=== PATIENT | female | born 1960 | race American Indian/Alaskan Native ===

== ENCOUNTER 2016-05-18 11:43 | Emergency (ER) | payer MEDICAID ==
[2016-05-18] MEDS ORDERED: NORCO 5/325 PO ONE (15:10)
--- NOTE | 2016-05-18 16:28 | Emergency Department Report ---
ED Lower Extremity HPI - General Chief Complaint: Extremity Injury, Lower Stated Complaint: LEFT BIG TOE POSS BROKE Source: patient Mode of arrival: Ambulatory Limitations: No Limitations - History of Present Illness Initial Comments: 55-year-old female past medical history diabetes, HIV presents with complaint of pain left big toe. Patient states family member asked that we stepped on until 2 nights ago. Toe was swollen, painful, ecchymosis around base of left great toe. Onset/Timin -: days(s) Injury: Toes: Left Type of Injury: blunt Place: home Severity: moderate Severity scale (0 -10): 5 Improves With: cold therapy Context: direct blow Associated Symptoms: swelling, able to partially bear weight - Related Data Home Medications Medication Instructions Recorded Confirmed Last Taken Abacavir Sulfate/Lamivudine 1 each PO DAILY 01/05/13 01/05/13 01/04/13 21:00 [Epzicom Tablet] Lopinavir/Ritonavir [Kaletra 1 each PO BID 01/05/13 01/05/13 01/04/13 21:00 200-50 mg] Metformin HCl [Metformin HCl ER] 500 mg PO QDAY 01/05/13 01/05/13 01/04/13 21:00 Previous Rx's Medication Instructions Recorded Last Taken Type Acetaminophen/Codeine [Tylenol #3] 1 tab PO Q6H PRN #8 tab 01/05/13 Unknown Rx Penicillin Vk [Veetids TAB] 500 mg PO QID #40 tablet 01/05/13 Unknown Rx Azithromycin [Zithromax Z-JAGRUTI] 250 mg PO QDAY #6 tablet 11/25/15 Unknown Rx Benzonatate [Tessalon Perles] 100 mg PO Q8HR #14 capsule 11/25/15 Unknown Rx HYDROcodone/APAP 7.5-325 [[place] 1 each PO Q8HR PRN #10 tablet 11/25/15 Unknown Rx 7.5-325 mg TAB] Ibuprofen [Motrin] 800 mg PO Q8HR PRN #15 tablet 02/09/16 Unknown Rx Ibuprofen [Motrin] 600 mg PO Q8H PRN #30 tablet 05/18/16 Unknown Rx Allergies Allergy/AdvReac Type Severity Reaction Status Date / Time No Known Allergies Allergy Verified 05/18/16 11:59 ED Review of Systems ROS: Stated complaint: LEFT BIG TOE POSS BROKE Other details as noted in HPI Constitutional: denies: chills, fever Eyes: denies: eye pain, eye discharge, vision change ENT: denies: ear pain, throat pain Respiratory: denies: cough, shortness of breath, wheezing Cardiovascular: denies: chest pain, palpitations Endocrine: no symptoms reported Gastrointestinal: denies: abdominal pain, nausea, diarrhea Genitourinary: denies: urgency, dysuria, discharge Musculoskeletal: denies: back pain, joint swelling, arthralgia Skin: denies: rash, lesions Neurological: denies: headache, weakness, paresthesias Psychiatric: denies: anxiety, depression Hematological/Lymphatic: denies: easy bleeding, easy bruising ED Past Medical Hx - Past Medical History Hx Hypertension: Yes Hx Diabetes: Yes Hx Asthma: Yes Hx HIV: Yes - Surgical History Additional Surgical History: CYST REMOVED LEFT CHEST (CHILD) - Social History Smoking Status: Current Every Day Smoker Substance Use Type: None - Medications Home Medications: Home Medications Medication Instructions Recorded Confirmed Last Taken Type Abacavir Sulfate/Lamivudine 1 each PO DAILY 01/05/13 01/05/13 01/04/13 21:00 History [Epzicom Tablet] Acetaminophen/Codeine [Tylenol #3] 1 tab PO Q6H PRN #8 tab 01/05/13 Unknown Rx Lopinavir/Ritonavir [Kaletra 1 each PO BID 01/05/13 01/05/13 01/04/13 21:00 History 200-50 mg] Metformin HCl [Metformin HCl ER] 500 mg PO QDAY 01/05/13 01/05/13 01/04/13 21: 00 History Penicillin Vk [Veetids TAB] 500 mg PO QID #40 tablet 01/05/13 Unknown Rx Azithromycin [Zithromax Z-JAGRUTI] 250 mg PO QDAY #6 tablet 11/25/15 Unknown Rx Benzonatate [Tessalon Perles] 100 mg PO Q8HR #14 capsule 11/25/15 Unknown Rx HYDROcodone/APAP 7.5-325 [[place] 1 each PO Q8HR PRN #10 tablet 11/25/15 Unknown Rx 7.5-325 mg TAB] Ibuprofen [Motrin] 800 mg PO Q8HR PRN #15 tablet 02/09/16 Unknown Rx Ibuprofen [Motrin] 600 mg PO Q8H PRN #30 tablet 05/18/16 Unknown Rx ED Physical Exam - General Limitations: No Limitations General appearance: alert, in no apparent distress - Head Head exam: Present: atraumatic, normocephalic - Eye Eye exam: Present: normal appearance - ENT ENT exam: Present: mucous membranes moist - Neck Neck exam: Present: normal inspection - Respiratory Respiratory exam: Present: normal lung sounds bilaterally. Absent: respiratory distress - Cardiovascular Cardiovascular Exam: Present: regular rate, normal rhythm. Absent: systolic murmur, diastolic murmur, rubs, gallop - GI/Abdominal GI/Abdominal exam: Present: soft, normal bowel sounds - Extremities Exam Extremities exam: Present: normal inspection - Expanded Lower Extremity Exam Left Hip exam: Present: normal inspection, full ROM Upper Leg exam: Present: normal inspection, full ROM Knee exam: Present: normal inspection, full ROM Lower Leg exam: Present: normal inspection, full ROM Ankle exam: Present: normal inspection, full ROM Foot/Toe exam: Present: tenderness (tenderness distal left great toe.), swelling Neuro vascular tendon exam: Present: no vascular compromise - Back Exam Back exam: Present: normal inspection - Neurological Exam Neurological exam: Present: alert, oriented X3 - Psychiatric Psychiatric exam: Present: normal affect, normal mood - Skin Skin exam: Present: warm, dry, intact, normal color. Absent: rash ED Course Vital Signs 05/18/16 11:55 Temperature 99.3 F Pulse Rate 101 H Respiratory 17 Rate Blood Pressure 137/86 O2 Sat by Pulse 98 Oximetry ED Lower Extremity MDM - Medical Decision Making A/P: Toe fracture 1-Danie tape left great toe and second together 2-patient fully ambulatory upon discharge 3-Motrin 600 when necessary 4-follow-up with podiatry Critical care attestation.: If time is entered above; I have spent that time in minutes in the direct care of this critically ill patient, excluding procedure time. ED Disposition Clinical Impression: Toe fracture, left Qualifiers: Encounter type: initial encounter Toe: great toe Fracture type: closed Phalanx : distal Fracture alignment: nondisplaced Qualified Code(s): S92.425A - Nondisplaced fracture of distal phalanx of left great toe, initial encounter for closed fracture Disposition: DISCHARGED TO HOME OR SELFCARE Is pt being admited?: No Does the pt Need Aspirin: No Condition: Stable Instructions: Toe Fracture (ED) Prescriptions: Ibuprofen [Motrin] 600 mg PO Q8H PRN #30 tablet PRN Reason: Pain Referrals: PRIMARY CARE, [Primary Care Provider] - 3-5 Days [facility] [Provider Group] - 3-5 Days Time of Disposition: 16:35
[2016-05-18 16:55] VITALS: BP 120/88
--- NOTE | 2016-05-19 08:25 | XRay Report ---
Left first toe: There appears to be minimal swelling of the tissues surrounding the toe. There is no foreign body nor ulcer. The bones and joints appear intact. Of incidental note is either periosteal reaction or subperiosteal resorption along the shaft of the third metatarsal. No other findings identified. Impression: Nonspecific mild swelling.
== END 2016-05-18 16:53 | disposition home or self-care (01) ==
LOC: ED 11:43
DX: S92.425A Nondisplaced fracture of distal phalanx of left great toe, initial encounter for closed fracture (principal); I10 Essential (primary) hypertension; E11.9 Type 2 diabetes mellitus without complications; J45.909 Unspecified asthma, uncomplicated; F17.200 Nicotine dependence, unspecified, uncomplicated; Z21 Asymptomatic human immunodeficiency virus [HIV] infection status; W22.8XXA Striking against or struck by other objects, initial encounter; Y93.89 Activity, other specified; Y99.8 Other external cause status; Y92.098 Other place in other non-institutional residence as the place of occurrence of the external cause
CPT/HCPCS: 99283

== ENCOUNTER 2016-07-04 02:09 | Emergency (ER) | payer MEDICAID ==
[2016-07-04] MEDS ORDERED: BENTYL IM ONE ×2 (02:44→02:57)
[2016-07-04] MEDS ORDERED: LIDOCAINE VISCOUS 2% ONE (02:45)
[2016-07-04] MEDS ORDERED: ALUM-MAG HYDROX-SIMETH 200-200-20MG/5ML ONE (02:46)
[2016-07-04] MEDS ORDERED: ALUM-MAG HYDROX-SIMETH 200-200-20MG/5ML PO ONE (02:57)
[2016-07-04] MEDS ORDERED: LIDOCAINE VISCOUS 2% PO ONE (02:58)
[2016-07-04 03:02] LABS: Basophils % (Auto) 0.4 % (0.0-1.8); Eosinophils % (Auto) 2.7 % (0.0-4.3); Hematocrit 42.1 % (30.3-42.9); Hemoglobin 13.8 gm/dl (10.1-14.3); Mean Corpuscular HGB Conc 33 % (30-34); Mean Corpuscular Hemoglobin 29 pg (28-32); Mean Corpuscular Volume 87 fl (79-97); Platelet Count 193 K/mm3 (140-440); Red Blood Count 4.83 M/mm3 (3.65-5.03); Red Cell Distribution Width 14.2 % (13.2-15.2); White Blood Count 8.9 K/mm3 (4.5-11.0)
[2016-07-04 03:20] LABS: Anion Gap 16 mmol/L; BUN/Creatinine Ratio 14.28; Blood Urea Nitrogen 10 mg/dL (7-17); Calcium 10.5 mg/dL (8.4-10.2); Carbon Dioxide 28 mmol/L (22-30); Chloride 100.2 mmol/L (98-107); Glucose 131 mg/dL (65-100); Potassium 3.5 mmol/L (3.6-5.0); Sodium 141 mmol/L (137-145)
[2016-07-04] MEDS ORDERED: TYLENOL ONE (03:21)
[2016-07-04 03:42] LABS: Bacteria,Urine 1+ /HPF (Negative); Bilirubin,Urine NEG (Negative); Blood,Urine SM (Negative); Ketones,Urine NEG (Negative); Leukocyte Esterase,Urine SM (Negative); Mucus,Urine FEW /HPF; Nitrite,Urine NEG (Negative); Protein,Urine <15 mg/dL mg/dL (Negative); Urobilinogen,Urine < 2.0 mg/dL (<2.0)
[2016-07-04] MEDS ORDERED: TYLENOL PO ONE ×2 (04:20→04:21)
--- NOTE | 2016-07-04 08:12 | XRay Report ---
ROUTINE CHEST, TWO VIEWS: HISTORY: chest pain. The trachea, heart, mediastinal contour, lung morrissey and bony thorax are unremarkable. IMPRESSION: Unremarkable chest x-ray.
--- NOTE | 2016-07-04 09:27 | Emergency Department Report ---
ED General Adult HPI - General Chief complaint: Chest Pain Stated complaint: CHEST PAIN Time Seen by Provider: 07/04/16 09:25 Source: patient Mode of arrival: Ambulatory Limitations: No Limitations - History of Present Illness Initial comments: The patient complains of discomfort in the substernal region which is clearly associated with swallowing. She has no evidence of oropharyngeal yeast. She has no history of candidal esophagitis. She complains of belching and burping associated with this. She denies prior history of reflux. She denies nausea vomiting or sweating and dyspnea. She has occasional cough but no pleuritic pain. She's had no hemoptysis no leg pain no leg swelling. There's been no recent travel. Patient is H IV positive she states that she receives care from [facility]. She states that her last CD4 count was 700 and that she is compliant with her antiretroviral medication. She is diabetic but has no history of any cardiac problem. -: days(s) Location: chest Radiation: non-radiation Quality: dull Consistency: intermittent Improves with: none Worsens with: none Associated Symptoms: denies other symptoms, other (able to swallow but pain which is mild to moderate) Treatments Prior to Arrival: none - Related Data Home Medications Medication Instructions Recorded Confirmed Last Taken Abacavir/Dolutegravir/Lamivudi 1 each PO DAILY 07/04/16 07/04/16 07/03/16 [Triumeq Tablet] Canagliflozin [Invokana] 300 mg PO DAILY 07/04/16 07/04/16 07/03/16 Insulin Glargine [Lantus] 30 unit SUB-Q QHS 07/04/16 07/04/16 07/03/16 Insulin Regular, Human [HumuLIN R] 15 unit SQ TIDAC 07/04/16 07/04/16 07/03/16 Losartan 100 mg PO DAILY 07/04/16 07/04/16 07/03/16 Simvastatin [Zocor TAB] 20 mg PO QHS 07/04/16 07/04/16 07/03/16 glipiZIDE [Glucotrol] 10 mg PO BID 07/04/16 07/04/16 07/03/16 Previous Rx's Medication Instructions Recorded Last Taken Type Fluconazole [Diflucan TAB] 200 mg PO QDAY #10 tablet 07/04/16 Unknown Rx Lansoprazole [Prevacid] 15 mg PO BID #60 cap 07/04/16 Unknown Rx Allergies Allergy/AdvReac Type Severity Reaction Status Date / Time No Known Allergies Allergy Verified 05/18/16 11:59 ED Review of Systems ROS: Stated complaint: CHEST PAIN Other details as noted in HPI Constitutional: denies: chills, fever Eyes: denies: eye pain, eye discharge, vision change ENT: denies: ear pain, throat pain Respiratory: cough (very occasional). denies: shortness of breath, wheezing Cardiovascular: denies: chest pain, palpitations Endocrine: no symptoms reported Gastrointestinal: as per HPI, other (pain on swallowing). denies: abdominal pain, nausea, diarrhea, constipation, hematemesis, melena, hematochezia Genitourinary: denies: urgency, dysuria, discharge Musculoskeletal: denies: back pain, joint swelling, arthralgia Skin: denies: rash, lesions Neurological: denies: headache, weakness, paresthesias Psychiatric: denies: anxiety, depression Hematological/Lymphatic: denies: easy bleeding, easy bruising ED Past Medical Hx - Past Medical History Previous Medical History?: Yes Hx Hypertension: Yes Hx Diabetes: Yes Hx Asthma: Yes Hx HIV: Yes - Surgical History Past Surgical History?: Yes Additional Surgical History: CYST REMOVED LEFT CHEST (CHILD) - Social History Smoking Status: Never Smoker Substance Use Type: Alcohol - Medications Home Medications: Home Medications Medication Instructions Recorded Confirmed Last Taken Type Abacavir/Dolutegravir/Lamivudi 1 each PO DAILY 07/04/16 07/04/16 07/03/16 History [Triumeq Tablet] Canagliflozin [Invokana] 300 mg PO DAILY 07/04/16 07/04/16 07/03/16 History Fluconazole [Diflucan TAB] 200 mg PO QDAY #10 tablet 07/04/16 Unknown Rx Insulin Glargine [Lantus] 30 unit SUB-Q QHS 07/04/16 07/04/16 07/03/16 History Insulin Regular, Human [HumuLIN R] 15 unit SQ TIDAC 07/04/16 07/04/16 07/03/16 History Lansoprazole [Prevacid] 15 mg PO BID #60 cap 07/04/16 Unknown Rx Losartan 100 mg PO DAILY 07/04/16 07/04/16 07/03/16 History Simvastatin [Zocor TAB] 20 mg PO QHS 07/04/16 07/04/16 07/03/16 History glipiZIDE [Glucotrol] 10 mg PO BID 07/04/16 07/04/16 07/03/16 History ED Physical Exam - General Limitations: No Limitations General appearance: alert, in no apparent distress - Head Head exam: Present: atraumatic, normocephalic - Eye Eye exam: Present: normal appearance. Absent: scleral icterus - ENT ENT exam: Present: normal exam, normal orophraynx, mucous membranes moist - Neck Neck exam: Present: normal inspection. Absent: tenderness, meningismus - Respiratory Respiratory exam: Present: normal lung sounds bilaterally. Absent: respiratory distress - Cardiovascular Cardiovascular Exam: Present: regular rate, normal rhythm. Absent: systolic murmur, diastolic murmur, rubs, gallop - GI/Abdominal GI/Abdominal exam: Present: soft, normal bowel sounds. Absent: distended, tenderness, guarding, rebound, rigid - Extremities Exam Extremities exam: Present: normal inspection, normal capillary refill, other ( patient stated that she had a fracture of her left great toe. It presents without deformity or redness. The toes are normal in appearance.). Absent: tenderness, pedal edema, joint swelling, calf tenderness - Back Exam Back exam: Present: normal inspection - Neurological Exam Neurological exam: Present: alert, oriented X3, CN II-XII intact. Absent: motor sensory deficit - Psychiatric Psychiatric exam: Present: normal affect, normal mood - Skin Skin exam: Present: warm, dry, intact, normal color. Absent: rash ED Course Vital Signs 07/04/16 07/04/16 07/04/16 02:15 08:58 09:00 Temperature 98.8 F Pulse Rate 87 75 Respiratory 16 11 L Rate Blood Pressure 120/62 Blood Pressure 141/84 [Right] O2 Sat by Pulse 99 97 96 Oximetry 07/04/16 07/04/16 07/04/16 09:13 09:30 10:37 Temperature Pulse Rate 80 Respiratory 18 10 L Rate Blood Pressure 120/62 120/62 Blood Pressure [Right] O2 Sat by Pulse 97 97 100 Oximetry - Reevaluation(s) Reevaluation #1: Reexamination the patient is in no distress. She states "I feel good". It only hurts when I burp or swallow. Her barium swallow was highly consistent with esophagitis. I will treat her for that. I'm also going to add Diflucan because she is HIV positive. She will be referred to GI as well as her primary care/HIV clinic 07/04/16 12:50 ED Medical Decision Making - Lab Data Result diagrams: 07/04/16 02:40 07/04/16 02:40 Laboratory Results - last 24 hr 07/04/16 07/04/16 07/04/16 02:40 02:40 06:01 WBC 8.9 RBC 4.83 Hgb 13.8 Hct 42.1 MCV 87 MCH 29 MCHC 33 RDW 14.2 Plt Count 193 Lymph % (Auto) 29.5 [place] % (Auto) 7.9 H Eos % (Auto) 2.7 Baso % (Auto) 0.4 Lymph # 2.6 [place] # 0.7 Eos # 0.2 Baso # 0.0 Seg Neutrophils % 59.5 Seg Neutrophils # 5.3 Sodium 141 Potassium 3.5 L Chloride 100.2 Carbon Dioxide 28 Anion Gap 16 BUN 10 Creatinine 0.7 Estimated GFR > 60 BUN/Creatinine Ratio 14.28 Glucose 131 H Calcium 10.5 H Troponin T < 0.010 < 0.010 Urine Color Urine Turbidity Urine pH Ur Specific [place] Urine Protein Urine Glucose (UA) Urine Ketones Urine Blood Urine Nitrite Urine Bilirubin Urine Urobilinogen Ur Leukocyte Esterase Urine WBC (Auto) Urine RBC (Auto) U Epithel Cells (Auto) Urine Bacteria (Auto) Urine Mucus 07/04/16 07/04/16 08:25 Unknown WBC RBC Hgb Hct MCV MCH MCHC RDW Plt Count Lymph % (Auto) [place] % (Auto) Eos % (Auto) Baso % (Auto) Lymph # [place] # Eos # Baso # Seg Neutrophils % Seg Neutrophils # Sodium Potassium Chloride Carbon Dioxide Anion Gap BUN Creatinine Estimated GFR BUN/Creatinine Ratio Glucose Calcium Troponin T < 0.010 Urine Color Yellow Urine Turbidity Clear Urine pH 6.0 Ur Specific [place] 1.031 H Urine Protein <15 mg/dl Urine Glucose (UA) >=500 Urine Ketones Neg Urine Blood Sm Urine Nitrite Neg Urine Bilirubin Neg Urine Urobilinogen < 2.0 Ur Leukocyte Esterase Sm Urine WBC (Auto) 1.0 Urine RBC (Auto) 1.0 U Epithel Cells (Auto) 1.0 Urine Bacteria (Auto) 1+ Urine Mucus Few - EKG Data -: EKG Interpreted by Me EKG shows normal: sinus rhythm, axis, intervals, QRS complexes, ST-T waves Rate: normal - EKG Data Interpretation: nonspecific ST-T wave chiquita, other (consider left atrial enlargement nonspecific changes which are mild) - Radiology Data Radiology results: report reviewed interpreted by me: Chest x-ray shows no acute process Barium swallow is consistent with esophagitis Critical care attestation.: If time is entered above; I have spent that time in minutes in the direct care of this critically ill patient, excluding procedure time. ED Disposition Clinical Impression: Esophagitis, HIV positive Type 2 diabetes mellitus Qualifiers: Diabetes mellitus complication status: with unspecified complications Diabetes mellitus detention insulin use: with intermediate project manager use Qualified Code(s): E11.8 - Type 2 diabetes mellitus with unspecified complications; Z79.4 - intermediate project manager ( current) use of insulin Disposition: DISCHARGED TO HOME OR SELFCARE Is pt being admited?: No Does the pt Need Aspirin: No Condition: Stable Instructions: Diet for Ulcers and Gastritis (ED), Diabetes Mellitus Type 2 in Adults (ED) Additional Instructions: It doesn't appear that you have esophagitis which is an inflammation of the swallowing tube and reflux. Rx as directed. Referral to GI specialist. Follow -up with your primary care/HIV clinic. Return any worsening symptoms or acute change. Prescriptions: Fluconazole [Diflucan TAB] 200 mg PO QDAY #10 tablet Lansoprazole [Prevacid] 15 mg PO BID #60 cap Referrals: DR ANGÉLICA [Other] - 2-3 Days [facility] [Provider Group] - 3-5 Days Time of Disposition: 12:53
[2016-07-04] MEDS ORDERED: K-DUR PO ONE (10:34)
--- NOTE | 2016-07-04 10:39 | Fluoroscopy Report ---
Barium swallow: History: Difficulty swallowing. Findings: Transit of barium through the cervical esophagus appears normal. No extrinsic or intrinsic filling defects are noted. No extravasation of contrast or aspiration. There is delay in transit of barium through the thoracic esophagus in the supine position with normal transit in lateral position and upright position. There is mucosal thickening noted of the mid thoracic esophagus with moderate gastroesophageal reflux. No evidence of hiatal hernia. No definite ulcer. Impression: Moderate gastroesophageal reflux with evidence of esophagitis.
--- NOTE | 2016-07-04 12:54 | Admit Criteria Form ---
Admission Criteria Documentation: GENERAL ADMISSION CRITERIA (Place 'X' for any and all applicable criteria): Admission is indicated for ANY ONE of the following: [ ]I. Hemodynamic instability as indicated by ANY ONE of the following(1)(2) (3)(4)(5): [ ]a) Vital sign abnormality not readily corrected by appropriate treatment within 12 to 24 hours indicated by ANY ONE of the following: [ ]i) Hypotension [ ]ii) Symptomatic Tachycardia unresponsive to treatment (eg , analgesia, fluids, sedation as indicated) [ ]iii) Orthostatic vital sign changes unresponsive to treatment (eg, fluids) [ ]b) Vital sign abnormality that is severe indicated by ANY ONE of the following: [ ]i) Inadequate perfusion indicated by ANY ONE of the following: [ ]1) Lactic acidosis (greater than 2 mmol/L) [ ]2) New abnormal capillary refill (greater than 3 seconds) [ ]3) Other metabolic acidosis (arterial pH less than 7.35) not otherwise explained [ ]4) Reduced urine output [ ]5) Altered mental status [ ]6) Myocardial Ischemia [ ]v) Mean arterial pressure[A] less than 60 mm Hg [ ]vi) Mean arterial pressure[A] less than 70 mm Hg after 30 minutes of appropriate treatment (eg, fluid resuscitation) [ ]vii) IV inotropic or vasopressor medication required to maintain adequate blood pressure or perfusion [ ]viii) Sustained heart rate greater than 120 beats per minute in adult or child 6 years or older[B]] [ ]II. Hypertension requiring inpatient treatment as indicated by ANY ONE of the following(6)(7)(8): [ ]a) SBP greater than 220 mm Hg or DBP greater than 120 mm Hg despite treatment [ ]b) SBP greater than 140 mm Hg or DBP greater than 100 mm Hg with evidence of acute end organ damage as indicated by ANY ONE of the following: [ ]i) Encephalopathy [ ]ii) Acute renal failure as indicated by new onset of ANY ONE of the following(9)(10)(11)(12)(13): [ ]1) A 3-fold rise in serum creatinine from baseline [ ]2) Serum creatinine greater than 4 mg/dL ( 354 micromoles/L) with acute rise greater than 0.5 mg/dL (44.2 micromoles/L) [ ]3) Reduction of more than 75% in estimated glomerular filtration rate from baseline [ ]4) Estimated glomerular filtration rate less than 35 mL/min/1.73m2 (0.59 mL/sec/1.73m2) in child up to 18 years of age [ ]5) Cessation of urine output indicated by ALL of the following: [ ]A. Adequate volume status [ ]B. Inadequate urine output as indicated by ANY ONE of the following: [ ]a. Urine output less than 0.3 mL/kg/hr for 24 hours [ ]b. Anuria (urine output less than 0.1 mL/kg/hr) for 12 hours [ ]iii) Aortic dissection [ ]iv) Myocardial ischemia [ ]v) Left ventricular heart failure [ ]vi) Retinal hemorrhage [ ]vii) Other significant finding [ ]c) Hypertension in child requiring inpatient treatment as indicated by ALL of the following(14)(15)(16): [ ]i) Outpatient treatment not effective, not available, or not appropriate [ ]ii) SBP or DBP greater than 95th percentile for age [ ]iii) Evidence of acute end organ damage as indicated by ANY ONE of the following: [ ]1) Altered mental status [ ]2) Acute renal failure as indicated by new onset of ANY ONE of the following(9)(10)(11)(12)(13): [ ]A. A 3-fold rise in serum creatinine from baseline [ ]B. Serum creatinine greater than 4 mg/dL (354 micromoles/L) with acute rise greater than 0.5 mg/dL (44.2 micromoles/L) [ ]C. Reduction of more than 75% in estimated glomerular filtration rate from baseline [ ]D. Estimated glomerular filtration rate less than 35 mL/min/1.73m2 (0.59 mL/sec/1.73m2)in child up to 18 years of age [ ]E. Cessation of urine output indicated by ALL of the following: [ ]a. Adequate volume status [ ]b. Inadequate urine output as indicated by ANY ONE of the following: [ ]1) Urine output less than 0.3 mL/kg/hr for 24 hours [ ]2) Anuria (urine output less than 0.1 mL/kg/hr) for 12 hours [ ]3) Severe headache [ ]4) Visual disturbance [ ]5) Retinal hemorrhage [ ]6) Other significant finding [ ]III. Acute cardiac or peripheral ischemia as indicated by ANY ONE of the following: [ ]a) Acute coronary syndrome(17)(18) [ ]b) Acute peripheral ischemia (eg, pulseless, cool, mottled, or cyanotic extremity)(19) [ ]IV. Cardiac arrhythmias or findings of immediate concern indicated by ANY ONE of the following(20)(21): [ ]a) Heart rhythms that are inherently dangerous or unstable indicated by ANY ONE of the following(22)(23)(24): [ ]i) Resuscitated ventricular fibrillation or cardiac arrest [ ]ii) Ventricular escape rhythm [ ]iii) Sustained ventricular tachycardia (30 seconds or more of ventricular rhythm at greater than 100 beats per minute) [ ]iv) Nonsustained ventricular tachycardia and ANY ONE of the following: [ ]1) Suspected cardiac ischemia as cause or consequence of ventricular tachycardia [ ]2) In setting of acute myocarditis [ ]b) Unstable cardiac conduction defects indicated by ANY ONE of the following(24)(25)(26): [ ]i) Type II second-degree atrioventricular block [ ]ii) Third-degree atrioventricular block [ ]iii) New-onset left bundle branch block with suspected myocardial ischemia [ ]c) Any heart rhythm and ANY ONE of the following(22)(23)(27)(28)( 29): [ ] i) Continuous long-term ECG monitoring needed (eg, initiation of drug requiring monitoring for more than 24 hours) [ ] ii) Patient has automatic implanted cardioverter defibrillator that is repeatedly firing, malfunctioning, or in need of immediate adjustment of settings beyond the scope of ambulatory or observation care. [ ]d) Heart rhythms of concern due to ANY ONE of the following: [ ]i) Hypotension [ ]ii) Respiratory distress [ ]iii) Association with other significant symptoms (eg, bradycardia with syncope or ongoing dizziness, supraventricular tachycardia with chest pain) (27)(28) (30) [ ] V. Severe heart failure as indicated by ANY ONE of the following ( 31)(32): [ ]a) Respiratory distress [ ]b) Hypotension [ ]c) Anasarca (refractory to outpatient therapy) [ ]d) Cardiac arrhythmias of immediate concern [ ]e) Myocardial ischemia [ ]. Respiratory abnormalities, including ANY ONE of the following(33)(34) (35)(36): [ ]a) Respiratory rate greater than 30 breaths per minute unresponsive to treatment [A] [ ]b) New saturation of arterial oxygen less than 90% [ ]c) New partial pressure of carbon dioxide greater than 44 mm Hg ( 5.9 kPa) [ ]d) Supplemental oxygen or respiratory treatments needed that are new or not performable at other levels of care [ ]e) New-onset cyanosis [ ]f) Inability to protect airway [ ]g) Chronic lung disease with severe deterioration (not responsive to emergency and observation care treatment as appropriate) as indicated by ANY ONE of the following(34)(36 ): [ ]i) SaO2 5% below baseline in patient with chronic hypoxemia [ ]ii) New requirement for supplemental oxygen to keep SaO2 at baseline or acceptable level [ ]iii) Required supplemental oxygen performable only in acute inpatient setting [ ]iv) Severe airflow or ventilation abnormalities [ ]v) Previously mobile patient unable to walk between rooms [ ]vi Inability to eat or sleep due to dyspnea [ ]vii) Rapid rate of exacerbation onset [ ]viii) Altered mental status ]VII. Severe airflow or ventilation abnormalities (not responsive to emergency and observation care treatment as appropriate) as indicated by ANY ONE of the following(33)(34)(35)(37): [ ]a) PCO2 greater than 42 mm Hg (5.6 kPa) and pH less than 7.35 (new ) [ ]b) Documented PCO2 increased more than 5 mm Hg (0.7 kPa) from disease baseline [ ]c) Airflow measurements [B] less than 60% of previous best or predicted (eg, peak expiratory flow rate less than 300 L/minute) despite intensive emergent treatment [C] [ ]d) Required respiratory treatments that are performable only in acute inpatient setting [ ]VIII. Impending or actual respiratory arrest ( Also use Respiratory Failure GRG for severe respiratory disease and long-term mechanical ventilation patients) [ ]IX. Neurologic abnormalities, including ANY ONE of the following: [ ]a) New findings that suggest ANY ONE of the following: [ ]i) FLEET DRIVER infection(38) [ ]ii) Cerebral bleeding, ischemia, or vasospasm(39)(40) [ ]iii) Increased intracranial pressure, hydrocephalus, or cerebral edema(41)(42)(43) [ ]iv) Spinal cord injury(44) [ ]b) Uncontrolled seizures(45) [ ]c) New-onset coma (eg, [place] coma scale score less than 9) or unexplained abnormal mental status (eg, [place] coma scale score less than 14) [D](41)(46)(47) [ ]X. New-onset severe neurologic findings requiring inpatient care; examples include(42)(48)(49): [ ]a) Papilledema [ ]b) Cerebral edema [ ]c) Mass effect on CT scan [ ]XI. Suspected acute intra-abdominal process with peritoneal signs, abdominal mass, or similar findings (50)(51)(52) [ ]XII. Severe physiologic disorder remaining after emergency or observation level care (as appropriate) as indicated by ANY ONE of the following (53): [ ]a) Significant dehydration [ ]b) Diabetic ketoacidosis [ ]c) Hyperglycemic hyperosmolar state (eg, osmolality greater than 320 mOsm/kg (mmol/kg) [ ]d) Hypoglycemia [ ]e) Other (new) acid-base disorder with pH less than 7.35 or greater than 7.5(54) [ ]f) Thyroid storm (55) [ ]g) Myxedema coma (55) [ ]XIII. Abdominal abnormalities with ANY ONE of the following(56)(57): [ ]a) Absent bowel sounds with complete ileus [ ]b) Signs of intestinal obstruction or peritonitis [E] [ ]c) Nausea and vomiting that cannot be controlled with outpatient or observation care [ ]XIV. Acute renal failure as indicated by new onset of ANY ONE of the following(9)(10)(11)(12)(13): [ ]a) A 3-fold rise in serum creatinine from baseline [ ]b) Serum creatinine greater than 4 mg/dL (354 micromoles/L) with acute rise greater than 0.5 mg/dL (44.2 micromoles/L) [ ]c) Reduction of more than 75% in estimated glomerular filtration rate from baseline [ ]d) Estimated glomerular filtration rate less than 35 mL/min/ 1.73m2 (0.59 mL/sec/1.73m2) in child up to 18 years of age [ ]e) Cessation of urine output indicated by ALL of the following: [ ]i) Adequate volume status [ ]ii) Inadequate urine output as indicated by ANY ONE of the following: [ ]1) Urine output less than 0.3 mL/kg/hr for 24 hours [ ]2) Anuria (urine output less than 0.1 mL/kg/hr) for 12 hours [ ]XV. Significant uremic complications as indicated by ANY ONE of the following(58)(59)(60): [ ]a) Outpatient therapy is ineffective or not feasible for ANY ONE of the following: [ ]i) Severe heart failure [ ]ii) Severehypertension [ ]iii) Pleural effusion [ ]iv) Pericarditis or pericardial effusion [ ]b) Cardiac arrhythmias of immediate concern [ ]c) Intractable nausea or vomiting [ ]d) Recurrent seizures [ ]e) Encephalopathy [ ]f) Bleeding abnormalities (eg, platelet dysfunction) with active (eg, gastrointestinal) bleeding [ ]g) Dialysis indicated before long-term access or ambulatory arrangements can be made [ ]h) Significant metabolic or electrolyte abnormalities (eg, severe acidosis or hyperkalemia) [ ]XVI. High fever or other high-risk infection situation as indicated by ANY ONE of the following(61)(62)(63)(64): [ ]a) Outpatient and observation care antimicrobial treatment unavailable, not effective, or not appropriate [ ]b) Documented bacteremia [ ]c) Temperature greater than 40.5 degrees C (104.9 degrees F) ( oral) [ ]d) Temperature greater than 39.5 degrees C (103.1 degrees F) ( oral) or less than 36 degrees C (96.8 degrees F) (rectal) that does not respond to e treatment and observation care [ ] XVII. Temperature less than 95 degrees F (35 degrees C)(rectal)(65) [ ] XVIII. Severe nutritional abnormalities as indicated by ALL of the following (66)(67): [ ]a) Inability to tolerate or establish sufficient oral or other enteral nutrition in outpatient setting [ ]b) Parenteral nutrition regimen need that must be implemented on inpatient basis [ ] XIX. Severe electrolyte abnormalities indicated by ALL of the following(68) (69)(70): [ ]a) Electrolytes and associated findings are not as expected for patient baseline or acceptable treatment effects. [ ]b) Severe abnormalities indicated by ANY ONE of the following: [ ]i) Sodium less than 130 mEq/L (mmol/L) (new) [ ]ii)Sodium less than 135 mEq/L (mmol/L) with ANY ONE of the following: [ ]1) Uncorrectable (to near normal or chronic baseline) after trial of outpatient and emergency treatment [ ]2) Altered mental status [ ]3) Seizures [ ]4) Severe medical etiology requiring inpatient management (eg, heart failure, hypovolemia) [ ]iii) Sodium greater than 155 mEq/L (mmol/L) [ ]iv) Sodium greater than 150 mEq/L (mmol/L) with ANY ONE of the following: [ ]1) Uncorrectable (to near normal or chronic baseline) with outpatient and emergency treatment [ ]2) Altered mental status [ ]3) Seizures [ ]4) Severe medical etiology (eg, hypovolemia, diabetes insipidus) [ ]v) Potassium less than 2.5 mEq/L (mmol/L) despite outpatient and emergency treatment [ ]vi) Potassium less than 3 mEq/L (mmol/L) with ANY ONE of the following: [ ]1) Weakness [ ]2) Cardiac abnormality (eg, arrhythmia, conduction disturbance) [ ]3) Cardiac ischemia [ ]4) Ileus [ ]5) Ongoing medical cause requiring inpatient management (eg, acute renal wasting or SIADH) [ ]6) Other severe symptoms [ ]vii) Potassium greater than 6.5 mEq/L (mmol/L) [ ]viii) Potassium greater than 5 mEq/L (mmol/L) with ANY ONE of the following: [ ]1) Uncorrectable (to near normal or chronic baseline) with outpatient and emergency treatment [ ]2) Severe ECG findings [F] [ ]3) Acute worsening of renal failure (creatinine greater than 2.5 mg/dL (221 micromoles/L) or significant elevation for age and size) [ ]4) Severe weakness [ ]5) Severe medical etiology (eg, hemolysis, infection, drug overdose) [ ]ix) Calcium less than 7 mg/dL (1.75 mmol/L) despite outpatient and emergency treatment (72) [ ]x) Calcium less than 8 mg/dL (2 mmol/L) with significant symptoms or findings; examples include(72): [ ]1) Altered mental status [ ]2) Muscle spasms [ ]3) Seizures [ ]4) Breathing difficulty [ ]5) Cardiac abnormality (eg, arrhythmia or conduction disturbance) [ ]xi) Calcium greater than 14 mg/dL (3.5 mmol/L)(72) [ ]xii) Calcium greater than 12 mg/dL (3 mmol/L) with ANY ONE of the following(72): [ ]1) Uncorrectable (to near normal or chronic baseline) with outpatient and emergency treatment [ ]2) Significant dehydration or hypovolemia as indicated by ALL of the following(70)(73)(74): [ ]A. Not resolved with initial treatments [ ]B. Clinically significant dehydration as indicated by ANY ONE of the following: [ ]a. Vomiting refractory to outpatient treatment (ie, precluding oral rehydration) [ ]b. Inability to drink [ ]c. Hypernatremia or other electrolyte abnormality unable to be corrected with outpatient and emergency treatment [ ]d. Failure to remain hydrated with outpatient therapy [ ]e. Reduced urine output [ ]f. Hypotension [ ]g. Serious cause for dehydration requiring acute hospitalization (eg, bowel obstruction, increased intracranial pressure, infectious cause) [ ]h. Child with ANY ONE of the following(75): [ ]1) Severe abdominal tenderness [ ]2) Adequate care not available at home [ ]3) Severe dehydration ( greater than 9% loss of body weight) [ ]4) Significant symptoms or findings; examples include: [ ]A. Altered mental status [ ]B. Cardiac abnormality (eg, arrhythmia, conduction disturbance) [ ]C. Malignant etiology requiring inpatient treatment [ ]xiii) Phosphorus less than 1 mg/dL (0.32 mmol/L) [ ]xiv) Phosphorus less than 1.5 mg/dL (0.48 mmol/L) with ANY ONE of the following: [ ]1) Patient unresponsive to outpatient and emergency treatment [ ]2) Significant symptoms or findings; examples include: [ ]A. Weakness [ ]B. Altered mental status [ ]C. Breathing difficulty [ ]D. Seizures [ ]E. Rhabdomyolysis [ ]xv) Phosphorus greater than 10 mg/dL (3.2 mmol/L) [ ]xvi) Phosphorus greater than 4.5 mg/dL (1.45 mmol/L) (new) with ANY ONE of the following: [ ]1) Severe medical etiology (eg, crush injury, acute renal failure) [ ]2) Associated hypocalcemia with significant findings; examples include: [ ]A. Neurologic symptoms [ ]B. Altered mental status [ ]C. Muscle spasms [ ]D. Seizures [ ]E. Breathing difficulty [ ]F. Cardiac abnormality (eg, arrhythmia, conduction disturbance) [ ]xvii) Magnesium less than 1 mg/dL (0.41 mmol/L) [ ]xviii) Magnesium less than 1.5 mg/dL (0.62 mmol/L) with ANY ONE of the following: [ ]1) Patient unresponsive to outpatient and emergency treatment [ ]2) Associated hypocalcemia with significant findings; examples include: [ ]A. Altered mental status [ ]B. Muscle spasms [ ]C. Seizures [ ]D. Breathing difficulty [ ]E. Cardiac abnormality (eg, arrhythmia , conduction disturbance) [ ]3) Associated hypokalemia (potassium less than 3 mEq/L (mmol/L)) with risk of arrhythmia [ ]xix) Magnesium greater than 4 mEq/L (2 mmol/L) [ ]xx) Magnesium greater than 2.5 mEq/L (1.25 mmol/L) with significant symptoms or findings; examples include: [ ]1) Weakness [ ]2) Altered mental status [ ]3) Cardiac abnormality (eg, arrhythmia, conduction disturbance) [ ]4) Breathing difficulty [ ]5) Severe medical etiology (eg, renal failure, hypovolemia) [ ]xxi) Uric acid greater than 20 mg/dL (1190 micromoles/L)(76) [ ]xxii) Uric acid greater than 8 mg/dL (476 micromoles/L) with significant symptoms or findings of tumor lysis syndrome; examples include(76): [ ]1) Creatinine greater than 1.5 times upper limit of normal [ ]2) Cardiac abnormality (eg, arrhythmia, conduction disturbance) [ ]3) Seizure [ ]XX. Acute blood loss causing significant abnormality as indicated by ANY ONE of the following(77)(78): [ ]a) Hemoglobin less than 10 g/dL (100 g/L) (not baseline) [ ]b) Hematocrit less than 30% (0.30) (not baseline) [ ]c) Repeat hematocrit decreased more than 2% (0.02) [ ]d) Uncontrolled bleeding [ ]XXI. Severe anemia indicated by ANY ONE of the following(78)(79): [ ]a) Altered mental status [ ]b) Chest pain [ ]c) Exertional dyspnea [ ]d) Syncope [ ]e) Other findings suggesting inadequate perfusion [ ]f) Treatment with transfusion or volume replacement is ineffective at resolving ANY ONE of the following [G]: [ ]i) Tachycardia for age [ ]ii) Orthostatic vital sign changes as indicated by ANY ONE of the following(80): [ ]1) Fall in SBP of 20 mm Hg or more 1 to 3 minutes after patient sits or stands from recumbent position [ ]2) Fall in DBP of 10 mm Hg or more 1 to 3 minutes after patient sits or stands from recumbent position [ ]XXII. High-risk low platelet count as indicated by ANY ONE of the following( 81)(82): [ ]a) Severe or life-threatening bleeding (eg, intracranial, major gastrointestinal, or extensive mucosal bleeding), with any reduced platelet count [ ]b) Platelet count less than 20,000/mm3 (20 x109/L) with any active bleeding [ ]c) Platelet count less than 10,000/mm3 (10 x109/L) with minor purpura or petechiae [ ]d) Platelet count less than 5000/mm3 (5 x109/L) [ ]e) Low platelet count with hemolytic anemia [ ]XXIII. Disseminated intravascular coagulation(77)(83) [ ]XXIV. Severe adverse drug or systemic toxin reaction requiring inpatient treatment; examples include(84)(85): [ ]a) Serotonin syndrome(86) [ ]b) Neuroleptic malignant syndrome(86) [ ]c) Cholinergic syndrome with severe symptoms (eg, bronchorrhea, weakness, mental status changes, seizures) [ ]d) Sympathetic syndrome with severe symptoms (eg, seizures, mental status changes, cardiac dysrhythmias) [ ]e) Anticholinergic syndrome [ ]XXV. Severe pain requiring acute inpatient management as indicated by ALL of the following (87)(88)(89): [ ]a) Continuous or frequent (eg, every 2 to 4 hours) parenteral analgesics required [H] [ ]b) Rapid improvement expected from treatment or acute intervention (eg, surgery, anesthesia procedure) [ ]XXVI.Severe behavioral health issues judged unmanageable at a lower level of care (eg, residential) in a patient who is ANY ONE of the following(91) [ ]a) Acutely suicidal [ ]b) A danger to self (eg, self-mutilating or suicidal behavior) [ ]c) A danger to others (eg, assaultive or homicidal behavior) [ ]d) Incapacitated because of grave disability (eg, inability to provide for self at lower level of care) (92) [ ]XXVII. Inpatient monitoring needed; examples include(1)(3)(87)(93)(94)(95)(96 ): [ ]a) Vital signs, neurologic signs, or vascular checks more frequently than every 4 hours [ ]b) Cardiac or respiratory monitoring beyond the scope (eg, over 24 hours) of observation care [ ]c) Pulmonary artery catheter monitoring [ ]d) Suspected compartment syndrome(97) (98) [ ]e) Cerebral bleeding, hydrocephalus, or vasospasm monitoring [ ]f) Increased intracranial pressure or cerebral edema monitoring [ ]g) monitoring [ ]XXVIII. Treatment requiring inpatient care; examples include: [ ]a) IV fluid to replace significant ongoing losses (greater than 3 L/m2 per day)(53) [ ]b) High concentration oxygen (greater than 40%)(33)(99)(100) [ ]c) Frequent respiratory therapy (more frequently than every 4 hours) to maintain airflow rates greater than 60% of baseline(33)(99)(100) [ ]d) Epidural analgesia(87) [ ]e) IV anticoagulation, vasoactive, or antiarrhythmic medication(19 )(23) [ ]f) Acute thrombolytics (generally require 24 hours of observation )(101)(102) [ ]XXIX. Emergency procedures needed; examples include: [ ]a) Emergency inpatient surgery [ ]b) Temporary pacemaker placement(103) [ ]c) Chest tube placement with active evacuation (eg, suction, drainage)(104) [ ]d) Emergent cardioversion(105) [ ]e) Emergent cardiac or vascular procedures (eg, cardiac catheterization, angioplasty) (17)(18) [ ]f) Emergent dialysis access placement and institution(10)(106) [ ]g) Emergent pericardiocentesis(107) [ ]h) Emergent plasmapheresis or leukapheresis(83) [ ]i) Emergent tracheostomy The original [employer] content created by [employer] has been revised. The portions of the content which have been revised are identified through the use of italic text or in bold, and [facility] has neither reviewed nor approved the modified material. All other unmodified content is copyright [employer]. Please see references footnoted in the original [employer] edition 2016
[2016-07-04] MEDS ORDERED: PROTONIX PO ONE (12:57)
[2016-07-04 13:12] VITALS: BP 128/74
== END 2016-07-04 13:13 | disposition home or self-care (01) ==
LOC: ED 02:09
DX: K20.9 Esophagitis, unspecified (principal); B20 Human immunodeficiency virus [HIV] disease; E11.8 Type 2 diabetes mellitus with unspecified complications; Z79.4 Long term (current) use of insulin; I10 Essential (primary) hypertension; J45.909 Unspecified asthma, uncomplicated
CPT/HCPCS: 36415; 71020; 74220; 80048; 81001; 83735; 84484; 85025; 93005; 93010; 96372; 99285; J0500

== ENCOUNTER 2019-01-15 22:25 | Emergency (ER) | payer MEDICARE ==
--- NOTE | 2019-01-15 23:44 | Emergency Department Report ---
HPI - General Chief Complaint: Urogenital-Female Time Seen by Provider: 01/15/19 23:34 - HPI HPI: Room 6 The patient is a 58-year-old female presenting with a chief complaint of vaginal pain and itching. The patient states since yesterday she's had vaginal itching and dysuria. Patient states she's noticed "white bumps" outside of her vagina. Patient denies hematuria or vaginal discharge Location: [See above] Duration: [See above] Quality: [See above] Severity: [See above] Timing: [See above] Context: [See above] Modifying factors: [See above] Associated signs and symptoms: [see above] ED Past Medical Hx - Past Medical History Previous Medical History?: Yes Hx Hypertension: Yes Hx Diabetes: Yes Hx Asthma: Yes Hx HIV: Yes (last CD4 count 700s Fall 2018) - Surgical History Past Surgical History?: Yes Additional Surgical History: CYST REMOVED LEFT CHEST (CHILD) - Family History Family history: no significant - Social History Smoking Status: Current Every Day Smoker (1/7 pack per day) Substance Use Type: None (denies illicit drug use) - Medications Home Medications: Home Medications Medication Instructions Recorded Confirmed Last Taken Type Abacavir/Dolutegravir/Lamivudi 1 each PO DAILY 07/04/16 07/04/16 07/03/16 History [Triumeq Tablet] Canagliflozin [Invokana] 300 mg PO DAILY 07/04/16 07/04/16 07/03/16 History Fluconazole [Diflucan TAB] 200 mg PO QDAY #10 tablet 07/04/16 Unknown Rx Insulin Glargine [Lantus] 30 unit SUB-Q QHS 07/04/16 07/04/16 07/03/16 History Insulin Regular, Human [HumuLIN R] 15 unit SQ TIDAC 07/04/16 07/04/16 07/03/16 History Lansoprazole [Prevacid] 15 mg PO BID #60 cap 07/04/16 Unknown Rx Losartan 100 mg PO DAILY 07/04/16 07/04/16 07/03/16 History Simvastatin (Nf) [Zocor TAB] 20 mg PO QHS 07/04/16 07/04/16 07/03/16 History glipiZIDE [Glucotrol] 10 mg PO BID 07/04/16 07/04/16 07/03/16 History Fluconazole [Diflucan TAB] 150 mg PO ONCE #1 tablet 01/16/19 Unknown Rx metroNIDAZOLE [Flagyl] 500 mg PO Q12HR #14 tab 01/16/19 Unknown Rx ED Review of Systems ROS: Stated complaint: VAGINAL RASH Other details as noted in HPI Constitutional: denies: fever Eyes: denies: eye pain ENT: denies: throat pain Respiratory: no symptoms reported Cardiovascular: denies: chest pain Endocrine: no symptoms reported Gastrointestinal: denies: abdominal pain Genitourinary: dysuria. denies: hematuria, discharge Neurological: denies: headache Physical Exam - Physical Exam Vital Signs: Vital Signs 01/15/19 01/15/19 22:33 23:16 Temperature 98.6 F 98.6 F Pulse Rate 110 H 110 H Respiratory 18 18 Rate Blood Pressure 173/78 173/78 O2 Sat by Pulse 98 98 Oximetry Physical Exam: GENERAL: The patient is well-developed well-nourished female lying on stretcher not appearing to be in acute distress. [] HEENT: Normocephalic. Atraumatic. Extraocular motions are intact. Patient has moist mucous membranes. NECK: Supple. Trachea midline CHEST/LUNGS: Clear to auscultation. There is no respiratory distress noted. HEART/CARDIOVASCULAR: Regular. There is no tachycardia. There is no gallop rub or murmur. ABDOMEN: Abdomen is soft, nontender. Patient has normal bowel sounds. There is no abdominal distention. SKIN: There is no rash. There is no edema. There is no diaphoresis. NEURO: The patient is awake, alert, and oriented. The patient is cooperative. The patient has normal speech MUSCULOSKELETAL: There is no CVA tenderness bilaterally. There is no evidence of acute injury. PELVIC: Scant white discharge seen at the vaginal introitus and in the vaginal vault. No vesicles seen ED Course Vital Signs 01/15/19 01/15/19 22:33 23:16 Temperature 98.6 F 98.6 F Pulse Rate 110 H 110 H Respiratory 18 18 Rate Blood Pressure 173/78 173/78 O2 Sat by Pulse 98 98 Oximetry ED Medical Decision Making - Lab Data Laboratory Tests 01/15/19 01/15/19 22:51 Unknown POC Glucose 351 H Urine Color Straw Urine Turbidity Clear Urine pH 5.0 Ur Specific [place] 1.032 H Urine Protein <15 mg/dl Urine Glucose (UA) >=500 Urine Ketones Neg Urine Blood Neg Urine Nitrite Neg Urine Bilirubin Neg Urine Urobilinogen < 2.0 Ur Leukocyte Esterase Sm Urine WBC (Auto) 4.0 Urine RBC (Auto) 4.0 U Epithel Cells (Auto) 1.0 Urine Bacteria (Auto) 1+ Wet prep-greater than or equal to 20% clue cells, no Trichomonas, no yeast - Differential Diagnosis UTI, vaginal candidiasis, HSV Critical care attestation.: If time is entered above; I have spent that time in minutes in the direct care of this critically ill patient, excluding procedure time. ED Disposition Clinical Impression: Bacterial vaginosis, Vaginal itching Disposition: TO HOME OR SELFCARE Is pt being admited?: No Does the pt Need Aspirin: No Condition: Stable Instructions: Bacterial Vaginosis (ED) Additional Instructions: Return to the emergency department should you develop worsening symptoms, i nability to tolerate food or liquids, high fever or any other concerns Prescriptions: Fluconazole [Diflucan TAB] 150 mg PO ONCE #1 tablet metroNIDAZOLE [Flagyl] 500 mg PO Q12HR #14 tab Referrals: KEENAN CANCINO MD [Staff Physician] - 3-5 Days (Dr. Newell is a director [employer]. Please follow up with her or your own director [employer] for further e valuation) Forms: STI Treatment and Prevention Time of Disposition: 01:35
[2019-01-16] LABS: Bilirubin,Urine NEG (Negative); Blood,Urine NEG (Negative); Color,Urine Straw (Yellow); Protein,Urine <15 mg/dL mg/dL (Negative)
[2019-01-16 00:01] LABS: Bacteria,Urine 1+ /HPF (Negative); Urobilinogen,Urine < 2.0 mg/dL (<2.0)
[2019-01-16 02:24] VITALS: BP 128/82
== END 2019-01-16 02:00 | disposition home or self-care (01) ==
LOC: ED 22:25
DX: N76.0 Acute vaginitis (principal); B96.89 Other specified bacterial agents as the cause of diseases classified elsewhere; I10 Essential (primary) hypertension; E11.9 Type 2 diabetes mellitus without complications; F17.200 Nicotine dependence, unspecified, uncomplicated; Z79.4 Long term (current) use of insulin
CPT/HCPCS: 81001; 82962; 87210; 87591; 99284

== ENCOUNTER 2019-02-04 03:04 | Emergency (ER) | payer MEDICARE ==
[2019-02-04 03:55] LABS: Basophils % (Auto) 0.6 % (0.0-1.8); Eosinophils # (Auto) 0.1 K/mm3 (0.0-0.4); Eosinophils % (Auto) 1.5 % (0.0-4.3); Hematocrit 42.4 % (30.3-42.9); Hemoglobin 13.9 gm/dl (10.1-14.3); Lymphocytes # (Auto) 2.3 K/mm3 (1.2-5.4); Lymphocytes % (Auto) 30.2 % (13.4-35.0); Mean Corpuscular HGB Conc 33 % (30-34); Mean Corpuscular Volume 88 fl (79-97); Monocytes # (Auto) 0.5 K/mm3 (0.0-0.8); Platelet Count 241 K/mm3 (140-440); Red Blood Count 4.82 M/mm3 (3.65-5.03)
[2019-02-04 04:07] LABS: Bacteria,Urine 1+ /HPF (Negative); Bilirubin,Urine NEG (Negative); Blood,Urine NEG (Negative); Color,Urine Straw (Yellow); Mucus,Urine FEW /HPF; Protein,Urine <15 mg/dL mg/dL (Negative); Urobilinogen,Urine < 2.0 mg/dL (<2.0)
[2019-02-04 04:09] LABS: BUN/Creatinine Ratio 19; Blood Urea Nitrogen 15 mg/dL (7-17); Calcium 9.4 mg/dL (8.4-10.2); Hemolysis Index 5
[2019-02-04] MEDS ORDERED: NACL 0.9% 500 ML 500 ML IV ONE (04:13)
[2019-02-04] MEDS ORDERED: HumuLIN R IV ONE (04:13)
--- NOTE | 2019-02-04 04:13 | Emergency Department Report ---
HPI - General Chief Complaint: Hyperglycemia Time Seen by Provider: 02/04/19 03:39 - HPI HPI: 58-year-old -Afghan female presents to the emergency department from home with 2 complaints. First, and the main complaint, is the patient is having burning to the vagina. The patient has a history of some type of bumps or growths that a been going on for the past few weeks. At first it started off as small white bumps patient was seen here about 3 weeks ago for this and was diagnosed with bacterial vaginosis and vaginal candidiasis. She was placed on Diflucan and Flagyl. The patient says that she took these medications and it helped with the pain but now she has developed some red raised patches to the vagina and it has started to burn. This has kept her from getting sleep. Secondly, the patient complains of elevated blood sugar despite compliance with her medications. She has a history of insulin-dependent diabetes on both Lantus and Humulin. She did not take it this evening but otherwise says she has been compliant. She also has a past medical history of asthma, HIV, hypertension. Her primary care physician is Dr. Degroot at [facility] and she has an appointment on the with an WASH HOUSE WORKER at [facility] as well. Her infectious disease doctor is Dr. victoria. She did see the infectious disease physician regarding the vaginal lesions and was given an anti-wart cream which she says has not helped. ED Past Medical Hx - Past Medical History Previous Medical History?: Yes Hx Hypertension: Yes Hx Diabetes: Yes Hx Asthma: Yes Hx HIV: Yes (last CD4 count 700s Fall 2018) - Surgical History Past Surgical History?: Yes Additional Surgical History: CYST REMOVED LEFT CHEST (CHILD) - Social History Smoking Status: Current Every Day Smoker Substance Use Type: None - Medications Home Medications: Home Medications Medication Instructions Recorded Confirmed Last Taken Type Abacavir/Dolutegravir/Lamivudi 1 each PO DAILY 07/04/16 07/04/16 07/03/16 History [Triumeq Tablet] Canagliflozin [Invokana] 300 mg PO DAILY 07/04/16 07/04/16 07/03/16 History Fluconazole [Diflucan TAB] 200 mg PO QDAY #10 tablet 07/04/16 Unknown Rx Insulin Glargine [Lantus] 30 unit SUB-Q QHS 0307/04/16 07/03/16 History Insulin Regular, Human [HumuLIN R] 15 unit SQ TIDAC 07/04/16 07/04/16 07/03/16 History Lansoprazole [Prevacid] 15 mg PO BID #60 cap 07/04/16 Unknown Rx Losartan 100 mg PO DAILY 07/04/16 07/04/16 07/03/16 History Simvastatin (Nf) [Zocor TAB] 20 mg PO QHS 07/04/16 07/04/16 07/03/16 History glipiZIDE [Glucotrol] 10 mg PO BID 07/04/16 07/04/16 07/03/16 History Fluconazole [Diflucan TAB] 150 mg PO ONCE #1 tablet 01/16/19 Unknown Rx metroNIDAZOLE [Flagyl] 500 mg PO Q12HR #14 tab 01/16/19 Unknown Rx HYDROcodone/APAP 5-325 [[place] 1 each PO Q6HR PRN #8 tablet 02/04/19 Unknown Rx 5/325] ED Review of Systems ROS: Stated complaint: POSS HIGH BS Other details as noted in HPI Comment: All other systems reviewed and negative Constitutional: denies: chills, fever Respiratory: denies: shortness of breath Cardiovascular: denies: chest pain Gastrointestinal: denies: abdominal pain, vomiting Genitourinary: other (vaginal pain) Skin: rash, lesions Physical Exam - Physical Exam Vital Signs: Vital Signs 02/04/19 02/04/19 03:13 03:57 Temperature 98.8 F Pulse Rate 118 H 105 H Respiratory 18 19 Rate Blood Pressure 140/88 Blood Pressure 166/80 [Right] O2 Sat by Pulse 96 98 Oximetry Physical Exam: GENERAL: The patient is well-developed well-nourished. HENT: Normocephalic. Atraumatic. Patient has moist mucous membranes. EYES: Extraocular motions are intact. Pupils equal reactive to light bilaterally. NECK: Supple. Trachea is midline. CHEST/LUNGS: Clear to auscultation. There is no respiratory distress noted. HEART/CARDIOVASCULAR: Regular. There is no tachycardia. There is no murmur. ABDOMEN: Abdomen is soft, nontender. Patient has normal bowel sounds. There is no abdominal distention. SKIN: Skin is warm and dry. NEURO: The patient is awake, alert, and oriented. The patient is cooperative. The patient has no focal neurologic deficits. Normal speech. MUSCULOSKELETAL: There is no tenderness or deformity. There is no limitation range of motion. There is no evidence of acute injury. : The patient has some signs of external vulvovaginal candidiasis. She has multiple small red plaques to the b/l labia. ED Course Vital Signs 02/04/19 02/04/19 03:13 03:57 Temperature 98.8 F Pulse Rate 118 H 105 H Respiratory Rate Blood Pressure 140/88 Blood Pressure 166/80 [Right] O2 Sat by Pulse 96 98 Oximetry ED Medical Decision Making - Lab Data Result diagrams: 02/04/19 03:36 02/04/19 03:42 - Medical Decision Making This patient presents with 2 main complaints. First, regarding the painful vaginal burning lesions the patient has follow-up already scheduled with WASH HOUSE WORKER. She has good follow-up with infectious disease. I will also give her a referral for dermatology. She was given some Toradol and a one-time dose of some lidocaine cream which did help resolve her pain. She was also given a Diflucan pill as there was some mild discharge seen. The patient exposed her genitalia to both myself and her nurse, Reid, unprompted by then was able to do an external visual examination. Secondly, the patient complains of some elevated blood sugar. She did have a blood sugar of about 440. She was given IV insulin and a small amount of IV fluid and he came down to a much more reasonable level. We discussed staying away from foods that are high in sugar, carbohydrates and starches and keeping a blood sugar log. She will follow up with PCP and will return with any worsening of her symptoms or any acute distress. - Differential Diagnosis DKA, HHNK, Herpes, HPV Critical Care Time: No Critical care attestation.: If time is entered above; I have spent that time in minutes in the direct care of this critically ill patient, excluding procedure time. ED Disposition Clinical Impression: Vulvovaginal candidiasis, Labial lesion, Hyperglycemia Disposition: - TO HOME OR SELFCARE Is pt being admited?: No Condition: Stable Instructions: Diabetic Hyperglycemia (ED) Additional Instructions: Please follow-up with your primary care physician regarding your diabetes and hyperglycemia. Take your medications as prescribed. Return to the emergency Department with any worsening of your symptoms or any acute distress. I have given you a referral for both an WASH HOUSE WORKER and a customer care agent regarding your vaginal/labial lesions. Return to the emergency Department with any worsening of your symptoms or any acute distress. You have been prescribed a medication that is sedating and therefore should not be taken prior to driving, working, and responsible for children and in no way should be mixed with alcohol of any quantity. Prescriptions: HYDROcodone/APAP 5-325 [[place] 5/325] 1 each PO Q6HR PRN #8 tablet PRN Reason: Pain Referrals: PRIMARY MD JAY [Primary Care Provider] - 2-3 Days FREDRICK GRAMAJO MD [Staff Physician] - 2-3 Days [facility] [Outside] - 2-3 Days [facility] [Provider Group] - 2-3 Days Time of Disposition: 05:48
[2019-02-04] MEDS ORDERED: TORADOL IV ONE (05:19)
[2019-02-04] MEDS ORDERED: XYLOCAINE TOPICAL 4% TP ONE (05:19)
[2019-02-04] MEDS ORDERED: DIFLUCAN PO ONE (05:49)
[2019-02-04 06:34] VITALS: BP 133/81
== END 2019-02-04 06:34 | disposition home or self-care (01) ==
LOC: ED 03:04
DX: E11.65 Type 2 diabetes mellitus with hyperglycemia (principal); B37.3 Candidiasis of vulva and vagina; N89.8 Other specified noninflammatory disorders of vagina; I10 Essential (primary) hypertension; J45.909 Unspecified asthma, uncomplicated; F17.200 Nicotine dependence, unspecified, uncomplicated; Z79.899 Other long term (current) drug therapy
CPT/HCPCS: 36415; 80048; 81001; 82805; 82962; 85025; 96374; 96375; 99284; J1885; J7040; J1815

== ENCOUNTER 2019-03-10 20:09 | Emergency (ER) | payer MEDICARE ==
[2019-03-10 22:36] VITALS: BP 129/57
[2019-03-10] MEDS ORDERED: ONDANSETRON 4 MG ODT TAB PO ONE (22:38)
[2019-03-10] MEDS ORDERED: ACETAMINOPHEN 325 MG TAB PO ONE (22:39)
--- NOTE | 2019-03-10 22:40 | Event Note ---
ED Screening Note Date of service: 03/10/19 Time: 22:35 ED Screening Note: 58 y o female presents with generalized body aches and joint pain pmh: DM onmedication n/v This initial assessment/diagnostic orders/clinical plan/treatment(s) is/are subject to change based on patients health status, clinical progression and re- assessment by fellow clinical providers in the ED. Further treatment and workup at subsequent clinical providers discretion. Patient/guardian urged not to elope from the ED as their condition may be serious if not clinically assessed and managed. Initial orders include: labs, ua zofran and tylenol in triage
[2019-03-10] MEDS ORDERED: ONDANSETRON 4 MG ODT TAB ONE (22:42)
[2019-03-10] MEDS ORDERED: ACETAMINOPHEN 325 MG TAB ONE (22:42)
[2019-03-10 23:07] LABS: Basophils # (Auto) 0.2 K/mm3 (0.0-0.1); Basophils % (Auto) 2.3 % (0.0-1.8); Eosinophils # (Auto) 0.1 K/mm3 (0.0-0.4); Hematocrit 38.1 % (30.3-42.9); Hemoglobin 12.7 gm/dl (10.1-14.3); Lymphocytes # (Auto) 0.6 K/mm3 (1.2-5.4); Mean Corpuscular HGB Conc 33 % (30-34); Mean Corpuscular Volume 88 fl (79-97); Monocytes # (Auto) 0.6 K/mm3 (0.0-0.8); Monocytes % (Auto) 8.3 % (0.0-7.3); Platelet Count 185 K/mm3 (140-440); Red Blood Count 4.33 M/mm3 (3.65-5.03); Red Cell Distribution Width 14.8 % (13.2-15.2)
[2019-03-10 23:32] LABS: BUN/Creatinine Ratio 16; Blood Urea Nitrogen 11 mg/dL (7-17); Calcium 8.7 mg/dL (8.4-10.2); Hemolysis Index 15
[2019-03-11 03:07] LABS: Bilirubin,Urine NEG (Negative); Blood,Urine NEG (Negative); Color,Urine Yellow (Yellow); Protein,Urine <15 mg/dL mg/dL (Negative); Urobilinogen,Urine < 2.0 mg/dL (<2.0)
== END 2019-03-11 01:45 | disposition left against medical advice (07) ==
LOC: ED 20:09
DX: M79.10 Myalgia, unspecified site (principal); Z53.21 Procedure and treatment not carried out due to patient leaving prior to being seen by health care provider
CPT/HCPCS: 36415; 80048; 81001; 85025; Q0162

== ENCOUNTER 2020-01-29 02:18 | Emergency (ER) | payer MEDICARE ==
[2020-01-29 02:35] VITALS: BP 162/78
[2020-01-29] MEDS ORDERED: KETOROLAC 30 MG/1 ML INJ IM ONE (02:53)
[2020-01-29] MEDS ORDERED: ACETAMINOPHEN 500 MG TAB PO ONE (02:53)
[2020-01-29] MEDS ORDERED: AMOXICILLIN/K CLAV 875/125MG TAB PO ONE (02:53)
--- NOTE | 2020-01-29 03:43 | Emergency Department Report ---
ED General Adult HPI - General Chief complaint: Dental/Oral Stated complaint: TOOTHACHE Source: patient Mode of arrival: Ambulatory Limitations: No Limitations - History of Present Illness Initial comments: Patient is a 59-year-old -Omani female with a history of HIV, asthma, hypertension and oxi-adjrbve-cyunkvfcb diabetes who presents to the ED with acute onset persistent severe left maxillary and mandibular premolar and molar toothache with swollen gums for the last 4 hours. Patient states that she was asleep when she suddenly woke up with severe pain. Patient denies dizziness, syncope, fever, chills, cough, sore throat, headache, change in vision, abdominal pain, chest pain or shortness of breath, diarrhea or change in vision. MD Complaint: Dental pain, swollen and painful gums -: Sudden, hour(s) (4) Location: mouth Radiation: non-radiation Severity scale (0 -10): 9 Quality: aching, sharp Consistency: constant Improves with: none Worsens with: none Associated Symptoms: denies other symptoms, loss of appetite, malaise. denies: confusion, chest pain, cough, diaphoresis, fever/chills, headaches, naus ea/vomiting, rash, seizure, shortness of breath, syncope, weakness, other Treatments Prior to Arrival: none - Related Data Home Medications Medication Instructions Recorded Confirmed Last Taken Abacavir/Dolutegravir/Lamivudi 1 each PO DAILY 07/04/16 07/04/16 07/03/16 [Triumeq Tablet] Canagliflozin [Invokana] 300 mg PO DAILY 07/04/16 07/04/16 07/03/16 Insulin Glargine [Lantus] 30 unit SUB-Q QHS 07/04/16 07/04/16 07/03/16 Insulin Regular, Human [HumuLIN R] 15 unit SQ TIDAC 07/04/16 07/04/16 07/03/16 Losartan 100 mg PO DAILY 07/04/16 07/04/16 07/03/16 Simvastatin (Nf) [Zocor TAB] 20 mg PO QHS 07/04/16 07/04/16 07/03/16 glipiZIDE [Glucotrol] 10 mg PO BID 07/04/16 07/04/16 07/03/16 Previous Rx's Medication Instructions Recorded Last Taken Type Fluconazole [Diflucan TAB] 200 mg PO QDAY #10 tablet 07/04/16 Unknown Rx Lansoprazole [Prevacid] 15 mg PO BID #60 cap 07/04/16 Unknown Rx Fluconazole (Nf) [Diflucan TAB] 150 mg PO ONCE #1 tablet 01/16/19 Unknown Rx metroNIDAZOLE [Flagyl] 500 mg PO Q12HR #14 tab 01/16/19 Unknown Rx HYDROcodone/APAP 5-325 [[place] 1 each PO Q6HR PRN #8 tablet 02/04/19 Unknown Rx 5/325] Clindamycin [Clindamycin CAP] 300 mg PO Q8HR #60 capsule 01/29/20 Unknown Rx Ketorolac [Toradol] 10 mg PO Q8H PRN #20 tablet 01/29/20 Unknown Rx traMADoL [Ultram] 50 mg PO Q6HR PRN #12 tablet 01/29/20 Unknown Rx Allergies Allergy/AdvReac Type Severity Reaction Status Date / Time No Known Allergies Allergy Verified 05/18/16 11:59 ED Review of Systems ROS: Stated complaint: TOOTHACHE Other details as noted in HPI Constitutional: denies: chills, fever Eyes: denies: eye pain, eye discharge, vision change ENT: dental pain, other (swollen painful gums). denies: ear pain, throat pain Respiratory: denies: cough, shortness of breath, wheezing Cardiovascular: denies: chest pain, palpitations Endocrine: no symptoms reported Gastrointestinal: denies: abdominal pain, nausea, diarrhea Genitourinary: denies: urgency, dysuria, discharge Musculoskeletal: denies: back pain, joint swelling, arthralgia Skin: denies: rash, lesions Neurological: denies: headache, weakness, paresthesias Psychiatric: denies: anxiety, depression Hematological/Lymphatic: denies: easy bleeding, easy bruising ED Past Medical Hx - Past Medical History Previous Medical History?: Yes Hx Hypertension: Yes Hx Diabetes: Yes Hx Asthma: Yes Hx HIV: Yes (last CD4 count 700s Fall 2018) - Surgical History Past Surgical History?: Yes Additional Surgical History: CYST REMOVED LEFT CHEST (CHILD) - Social History Smoking Status: Current Every Day Smoker Substance Use Type: None - Medications Home Medications: Home Medications Medication Instructions Recorded Confirmed Last Taken Type Abacavir/Dolutegravir/Lamivudi 1 each PO DAILY 07/04/16 07/04/16 07/03/16 History [Triumeq Tablet] Canagliflozin [Invokana] 300 mg PO DAILY 07/04/16 07/04/16 07/03/16 History Fluconazole [Diflucan TAB] 200 mg PO QDAY #10 tablet 07/04/16 Unknown Rx Insulin Glargine [Lantus] 30 unit SUB-Q QHS 07/04/16 07/04/16 07/03/16 History Insulin Regular, Human [HumuLIN R] 15 unit SQ TIDAC 07/04/16 07/04/16 07/03/16 History Lansoprazole [Prevacid] 15 mg PO BID #60 cap 07/04/16 Unknown Rx Losartan 100 mg PO DAILY 07/04/16 07/04/16 07/03/16 History Simvastatin (Nf) [Zocor TAB] 20 mg PO QHS 07/04/16 07/04/16 07/03/16 History glipiZIDE [Glucotrol] 10 mg PO BID 07/04/16 07/04/16 07/03/16 History Fluconazole (Nf) [Diflucan TAB] 150 mg PO ONCE #1 tablet 01/16/19 Unknown Rx metroNIDAZOLE [Flagyl] 500 mg PO Q12HR #14 tab 01/16/19 Unknown Rx HYDROcodone/APAP 5-325 [[place] 1 each PO Q6HR PRN #8 tablet 02/04/19 Unknown Rx 5/325] Clindamycin [Clindamycin CAP] 300 mg PO Q8HR #60 capsule 01/29/20 Unknown Rx Ketorolac [Toradol] 10 mg PO Q8H PRN #20 tablet 01/29/20 Unknown Rx traMADoL [Ultram] 50 mg PO Q6HR PRN #12 tablet 01/29/20 Unknown Rx ED Physical Exam - General Limitations: No Limitations General appearance: alert, in no apparent distress - Head Head exam: Present: atraumatic, normocephalic, normal inspection - Eye Eye exam: Present: normal appearance, PERRL, EOMI Pupils: Present: normal accommodation - ENT ENT exam: Present: normal exam, mucous membranes moist, TM's normal bilaterally, normal external ear exam, other (Swollen severely tender left maxillary and mandibular gingiva with premolar and molar teeth tenderness) - Neck Neck exam: Present: normal inspection, full ROM - Respiratory Respiratory exam: Present: normal lung sounds bilaterally. Absent: respiratory distress, wheezes, rales, rhonchi, stridor, chest wall tenderness, accessory muscle use, decreased breath sounds, prolonged expiratory - Cardiovascular Cardiovascular Exam: Present: regular rate, normal rhythm, normal heart sounds. Absent: systolic murmur, diastolic murmur, rubs, gallop - GI/Abdominal GI/Abdominal exam: Present: soft, normal bowel sounds. Absent: tenderness, guarding, hyperactive bowel sounds, hypoactive bowel sounds, mass - Extremities Exam Extremities exam: Present: normal inspection, full ROM, normal capillary refill - Back Exam Back exam: Present: normal inspection, full ROM. Absent: tenderness, CVA tenderness (R), CVA tenderness (L), muscle spasm, paraspinal tenderness, vertebral tenderness - Neurological Exam Neurological exam: Present: alert, oriented X3, CN II-XII intact, normal gait, reflexes normal - Psychiatric Psychiatric exam: Present: normal affect, normal mood - Skin Skin exam: Present: warm, dry, intact, normal color. Absent: rash ED Course Vital Signs 01/29/20 02:32 Temperature 97.9 F Pulse Rate 97 H Respiratory 20 Rate Blood Pressure 162/78 O2 Sat by Pulse 100 Oximetry ED Medical Decision Making - Radiology Data Radiology results: report reviewed - Medical Decision Making This is a 59-year-old -Omani female with a history of HIV, asthma, hypertension and kdu-jzyeomj-klwgrtznc diabetes who presents to the ED with acute onset persistent severe left maxillary and mandibular premolar and molar toothache with swollen gums for the last 4 hours. Patient states that she was asleep when she suddenly woke up with severe pain. In the ED, patient is alert and oriented x3 and is not in distress but appears to be in significant pain. Patient was treated for pain in the ED and also given initial oral antibiotics. On reevaluation, patient's pain is well controlled medications. Patient was discharged home on pain medications and oral antibiotics and was advised to follow-up with her primary care physician or dentist in 7 to 10 days for reevaluation. Patient was advised return to the ED immediately if symptoms get worse. - Differential Diagnosis Dental abscess; gingivitis; dental caries; Critical care attestation.: If time is entered above; I have spent that time in minutes in the direct care of this critically ill patient, excluding procedure time. ED Disposition Clinical Impression: Dental abscess, Acute gingivitis, Dental caries Disposition: TO HOME OR SELFCARE Is pt being admited?: No Does the pt Need Aspirin: No Condition: Stable Instructions: Dental Abscess (ED), Dental Caries (ED), Gingivitis (ED) Additional Instructions: Take medication with food, drink plenty of fluids and follow-up with your dentist or primary care physician in 7 to 10 days for reevaluation. Return to the ED immediately if symptoms get worse. Prescriptions: Clindamycin [Clindamycin CAP] 300 mg PO Q8HR #60 capsule Ketorolac [Toradol] 10 mg PO Q8H PRN #20 tablet PRN Reason: Pain traMADoL [Ultram] 50 mg PO Q6HR PRN #12 tablet PRN Reason: Pain Referrals: [facility] [Outside] - 3-5 Days [facility] [Outside] - 3-5 Days Time of Disposition: 03:41 Print Language: BELARUSIAN
== END 2020-01-29 03:59 | disposition home or self-care (01) ==
LOC: ED 02:18
DX: K04.7 Periapical abscess without sinus (principal); K05.00 Acute gingivitis, plaque induced; K02.9 Dental caries, unspecified; I10 Essential (primary) hypertension; E11.9 Type 2 diabetes mellitus without complications; J45.909 Unspecified asthma, uncomplicated; F17.200 Nicotine dependence, unspecified, uncomplicated; Z79.899 Other long term (current) drug therapy; Z21 Asymptomatic human immunodeficiency virus [HIV] infection status; Z98.890 Other specified postprocedural states
CPT/HCPCS: 96372; 99282; J1885

== ENCOUNTER 2020-03-20 11:53 | Emergency (ER) | payer MEDICARE ==
[2020-03-20 12:09] VITALS: BP 168/83
--- NOTE | 2020-03-20 13:05 | Event Note ---
ED Screening Note ED Screening Note: fever began two weeks ago states the fever went away states two days ago began having chills cough rhinorrhea no n/v/d mild sore throat tolerating PO intake PMHx DM, asthma, HIV, HTN quit smoking one month ago on antivirals for her HIV, states her CD4 is 900 and undectable no allergies to meds This initial assessment/diagnostic orders/clinical plan/treatment(s) is/are subject to change based on patients health status, clinical progression and re- assessment by fellow clinical providers in the ED. Further treatment and workup at subsequent clinical providers discretion. Patient/guardian urged not to elope from the ED as their condition may be serious if not clinically assessed and managed. Initial orders include: labs CXR
--- NOTE | 2020-03-20 13:28 | XRay Report ---
CHEST 2 VIEWS INDICATION: cough. COMPARISON: 07/04/2016 FINDINGS: Support devices: None. Heart: Within normal limits. Lungs/pleura: No acute air space or interstitial disease. No pneumothorax. Additional findings: None. IMPRESSION: No acute findings. Signer Name: Cade Whiteside Jr, MD Signed: 03/20/2020 1:23 PM Workstation Name: [id number]
[2020-03-20 13:54] LABS: Basophils # (Auto) 0.1 K/mm3 (0.0-0.1); Basophils % (Auto) 0.8 % (0.0-1.8); Eosinophils # (Auto) 0.2 K/mm3 (0.0-0.4); Eosinophils % (Auto) 2.8 % (0.0-4.3); Hematocrit 39.2 % (30.3-42.9); Lymphocytes # (Auto) 1.9 K/mm3 (1.2-5.4); Lymphocytes % (Auto) 30.8 % (13.4-35.0); Mean Corpuscular HGB Conc 33 % (30-34); Mean Corpuscular Volume 91 fl (79-97); Monocytes # (Auto) 0.5 K/mm3 (0.0-0.8); Monocytes % (Auto) 8.1 % (0.0-7.3); Platelet Count 208 K/mm3 (140-440); Red Blood Count 4.31 M/mm3 (3.65-5.03); Red Cell Distribution Width 13.6 % (13.2-15.2)
[2020-03-20 14:14] LABS: Alanine Aminotransferase 17 units/L (7-56); Albumin 3.8 g/dL (3.9-5); Blood Urea Nitrogen 11 mg/dL (7-17); Calcium 9.3 mg/dL (8.4-10.2); Hemolysis Index 5
[2020-03-20 14:24] LABS: BUN/Creatinine Ratio 16
--- NOTE | 2020-03-20 15:38 | Emergency Department Report ---
- General Chief Complaint: Upper Respiratory Infection Stated Complaint: NO TASTE/SMELL/COUGH Time Seen by Provider: 03/20/20 13:02 Source: patient Mode of arrival: Ambulatory Limitations: No Limitations - History of Present Illness Initial Comments: 59-year-old female with a past medical history of HIV, diabetes, hypertension, hyperlipidemia presents to the ER today complaining of URI symptoms and cough for 2 weeks and 3 days. Patient states that her cough initially was productive, but it now is dry. She states that her cough is so severe is causing her chest to hurt, her head to hurt and her throat to hurt. She states that she has had fever twice in the course of 2 weeks, when the symptoms first started, and this past Thursday. She states that the highest measured temperature was 100, she has taken Tylenol which did help. She has not had any more fever since Thursday. She reports rhinorrhea, nasal congestion and she states that her mouth feels dry. She also reports loss of smell and taste. She also reports mild intermittent wheezing. She states that she has been using her nebulizer treatments 1-2 times per day since her symptoms started. She states that she did schedule herself to get a COVID-19 test today, but when they called her for an appointment she was already here in the ER. She denies any ill contacts she denies any known COVID- 19 contacts and she denies any recent travel. She states that her last CD4 count was 900, and her viral load is undetectable. MD Complaint: fever, cough, sore throat, rhinorrhea, nasal congestion -: week(s) (2 weeks and 3 days ) Severity: mild, moderate - Related Data Home Medications Medication Instructions Recorded Confirmed Last Taken Abacavir/Dolutegravir/Lamivudi 1 each PO DAILY 07/04/16 07/04/16 07/03/16 [Triumeq Tablet] Canagliflozin [Invokana] 300 mg PO DAILY 07/04/16 07/04/16 07/03/16 Insulin Glargine [Lantus] 30 unit SUB-Q QHS 07/04/16 07/04/16 07/03/16 Insulin Regular, Human [HumuLIN R] 15 unit SQ TIDAC 07/04/16 07/04/16 07/03/16 Losartan 100 mg PO DAILY 07/04/16 07/04/1617 Simvastatin (Nf) [Zocor TAB] 20 mg PO QHS 07/04/16 07/04/16 07/03/16 glipiZIDE [Glucotrol] 10 mg PO BID 07/04/16 07/04/16 07/03/16 Previous Rx's Medication Instructions Recorded Last Taken Type Lansoprazole [Prevacid] 15 mg PO BID #60 cap 07/04/16 Unknown Rx Albuterol Mdi (or & Nicu Only) 2 puff IH QID PRN #8.5 gram 03/20/20 Unknown Rx [ProAir HFA Inhaler] Amoxicillin/Potassium Clav 1 each PO BID #14 tablet 03/20/20 Unknown Rx [Augmentin 875-125 Tablet] Cetirizine HCl [Zyrtec 10mg tab] 10 mg PO DAILY #30 tablet 03/20/20 Unknown Rx Promethazine /Codeine 5 - 10 ml PO Q6H PRN #100 udc 03/20/20 Unknown Rx [Phenergan/Codeine 6.25-10 mg/5 ml] Allergies Allergy/AdvReac Type Severity Reaction Status Date / Time No Known Allergies Allergy Verified 05/18/16 11:59 ED Review of Systems ROS: Stated complaint: NO TASTE/SMELL/COUGH Other details as noted in HPI Constitutional: denies: chills, fever Eyes: denies: eye pain, eye discharge, vision change ENT: denies: ear pain, throat pain Respiratory: cough, wheezing. denies: shortness of breath, SOB with exertion, SOB at rest Cardiovascular: chest pain (with cough) Gastrointestinal: denies: abdominal pain, nausea, vomiting, diarrhea, constipati on Musculoskeletal: denies: back pain, joint swelling, arthralgia Skin: denies: rash, lesions Neurological: headache Psychiatric: denies: as per HPI Hematological/Lymphatic: denies: as per HPI ED Past Medical Hx - Past Medical History Previous Medical History?: Yes Hx Hypertension: Yes Hx Diabetes: Yes Hx Asthma: Yes Hx HIV: Yes (last CD4 count 700s Fall 2018) - Surgical History Past Surgical History?: Yes Additional Surgical History: CYST REMOVED LEFT CHEST (CHILD) - Social History Smoking Status: Former Smoker Substance Use Type: None - Medications Home Medications: Home Medications Medication Instructions Recorded Confirmed Last Taken Type Abacavir/Dolutegravir/Lamivudi 1 each PO DAILY 07/04/16 07/04/16 07/03/16 Hist ory [Triumeq Tablet] Canagliflozin [Invokana] 300 mg PO DAILY 07/04/16 07/04/16 07/03/16 History Insulin Glargine [Lantus] 30 unit SUB-Q QHS 07/04/16 07/04/16 07/03/16 History Insulin Regular, Human [HumuLIN R] 15 unit SQ TIDAC 07/04/16 07/04/16 07/03/16 History Lansoprazole [Prevacid] 15 mg PO BID #60 cap 07/04/16 Unknown Rx Losartan 100 mg PO DAILY 07/04/16 07/04/16 07/03/16 History Simvastatin (Nf) [Zocor TAB] 20 mg PO QHS 07/04/16 07/04/16 07/03/16 History glipiZIDE [Glucotrol] 10 mg PO BID 07/04/16 07/04/16 07/03/16 History Albuterol Mdi (or & Nicu Only) 2 puff IH QID PRN #8.5 gram 03/20/20 Unknown Rx [ProAir HFA Inhaler] Amoxicillin/Potassium Clav 1 each PO BID #14 tablet 03/20/20 Unknown Rx [Augmentin 875-125 Tablet] Cetirizine HCl [Zyrtec 10mg tab] 10 mg PO DAILY #30 tablet 03/20/20 Unknown Rx Promethazine /Codeine 5 - 10 ml PO Q6H PRN #100 udc 03/20/20 Unknown Rx [Phenergan/Codeine 6.25-10 mg/5 ml] ED Physical Exam - General Limitations: No Limitations General appearance: alert, in no apparent distress - Head Head exam: Present: atraumatic, normocephalic, normal inspection - Eye Eye exam: Present: normal appearance, PERRL, EOMI Pupils: Present: normal accommodation - ENT ENT exam: Present: normal exam, normal orophraynx, mucous membranes moist, other (Patient has tenderness over maxillary and frontal sinuses) - Neck Neck exam: Present: normal inspection, full ROM. Absent: meningismus - Respiratory Respiratory exam: Present: normal lung sounds bilaterally. Absent: respiratory distress - Cardiovascular Cardiovascular Exam: Present: regular rate, normal rhythm, normal heart sounds - GI/Abdominal GI/Abdominal exam: Present: soft. Absent: distended, tenderness - Neurological Exam Neurological exam: Present: alert, oriented X3, CN II-XII intact, normal gait - Psychiatric Psychiatric exam: Present: normal affect, normal mood - Skin Skin exam: Present: intact ED Course Vital Signs 03/20/20 12:04 Temperature 98.6 F Pulse Rate 90 Respiratory 18 Rate Blood Pressure 168/83 O2 Sat by Pulse 99 Oximetry ED Medical Decision Making - Lab Data Result diagrams: 03/20/20 13:42 03/20/20 13:42 - Radiology Data Radiology results: report reviewed - Medical Decision Making 1601 --patient presents to the ER today with complaint of URI symptoms and cough for 2-1/2 weeks. The patient is resting comfortably, is alert and in no distress. The patient has normal mental status and is neurologically intact. The patient appears well and there is no significant dehydration. There is no respiratory distress and no signs of systemic toxicity. The history, exam, diagnostic testing and current condition do not demonstrate an infectious process such as meningitis, severe pneumonia, retropharyngeal abscess, epiglottitis, sepsis or other serious bacterial infection requiring further testing, treatment, consultation or admission at this time. The vital signs have been stable. The patient's condition is stable and appropriate for discharge. The patient will pursue further outpatient evaluation with the primary care physician or other designated or consulting physician as indicated on the discharge instructions. Critical care attestation.: If time is entered above; I have spent that time in minutes in the direct care of this critically ill patient, excluding procedure time. ED Disposition Clinical Impression: Acute bronchitis, Acute bacterial sinusitis Disposition: TO HOME OR SELFCARE Is pt being admited?: No Does the pt Need Aspirin: No Condition: Stable Instructions: Acute Bronchitis (ED), Sinusitis, Adult, [id number], Acute Bronchitis, Adult, [id number] Additional Instructions: Take medications as prescribed. Use your albuterol MDI/Nebulizer tx every 4- 6hrs. I recommend that you follow up tomorrow at local urgent care or health department for outpatient COVID 19 testing. Follow up closely with your PCP. REturn to ED if worse. Prescriptions: Amoxicillin/Potassium Clav [Augmentin 875-125 Tablet] 1 each PO BID #14 tablet Promethazine /Codeine [Phenergan/Codeine 6.25-10 mg/5 ml] 5 - 10 ml PO Q6H PRN #100 udc PRN Reason: cough Albuterol Mdi (or & Nicu Only) [ProAir HFA Inhaler] 2 puff IH QID PRN #8.5 gram PRN Reason: Shortness Of Breath Cetirizine HCl [Zyrtec 10mg tab] 10 mg PO DAILY #30 tablet Referrals: [facility] [Other] - 3-5 Days Time of Disposition: 15:43
== END 2020-03-20 15:56 | disposition home or self-care (01) ==
LOC: ED 11:53
DX: J20.9 Acute bronchitis, unspecified (principal); J01.90 Acute sinusitis, unspecified; B96.89 Other specified bacterial agents as the cause of diseases classified elsewhere; I10 Essential (primary) hypertension; E11.9 Type 2 diabetes mellitus without complications; Z21 Asymptomatic human immunodeficiency virus [HIV] infection status; Z87.891 Personal history of nicotine dependence; Z79.899 Other long term (current) drug therapy
CPT/HCPCS: 36415; 71046; 80053; 85025; 99283

== ENCOUNTER 2021-08-13 07:45 | Emergency (ER) | payer MEDICARE ==
[2021-08-13] MEDS ORDERED: INSULIN REGULAR, HUMAN 100 UNITS/1 ML IV ONE (08:31)
[2021-08-13] MEDS ORDERED: SODIUM CHLORIDE 0.9% 1000 ML 1,000 ML IV ONE (08:32)
--- NOTE | 2021-08-13 08:39 | Emergency Department Report ---
ED Palpitations HPI - General Chief Complaint: Arrhythmia/Palpitations Stated Complaint: HEART PALPITATIONS Time Seen by Provider: 08/13/21 08:19 Source: patient, EMS Mode of arrival: Stretcher Limitations: No Limitations - History of Present Illness Initial Comments: 60-year female with a past medical history of diabetes, asthma, HIV with CD4 greater than 200, and hypertension presents to the hospital complaining of palpitations since last night. Patient was at rest at approximately 10 PM and felt like her heart was fluttering, beating fast, and beating hard. She called EMS but they did not arrive. She fell asleep and woke up at 5 AM feeling r esidual fluttering but not as severe as last night. During the episodes patient did not experience any chest pain, nausea, vomiting, diaphoresis, or shortness of breath. She denies Tenderness, leg edema, history of PE/DVT. Glucose was 492 this morning and therefore patient was transported to the ER for evaluation. Patient did not yet take her a.m. diabetes medication and did eat prior to ED arrival. She denies previous history of arrhythmia - Related Data Home Medications Medication Instructions Recorded Confirmed Last Taken Abacavir/Dolutegravir/Lamivudi 1 each PO DAILY 07/04/16 08/13/21 08/12/21 [Triumeq Tablet] Canagliflozin [Invokana] 300 mg PO DAILY 07/04/16 08/13/21 08/12/21 Insulin Glargine [Lantus] 30 unit SUB-Q QHS 07/04/16 08/13/21 08/12/21 Insulin Regular, Human [HumuLIN R] 15 unit SQ TIDAC 07/04/16 08/13/21 08/12/21 Losartan 100 mg PO DAILY 07/04/16 08/13/21 08/12/21 Simvastatin (Nf) [Zocor TAB] 20 mg PO QHS 07/04/16 08/13/21 08/12/21 glipiZIDE [Glucotrol] 10 mg PO BID 07/04/16 08/13/21 08/12/21 Previous Rx's Medication Instructions Recorded Last Taken Type Lansoprazole [Prevacid] 15 mg PO BID #60 cap 07/04/16 08/12/21 Rx Albuterol Mdi (or & Nicu Only) 2 puff IH QID PRN #8.5 gram 03/20/20 08/12/21 Rx [ProAir HFA Inhaler] Amoxicillin/Potassium Clav 1 each PO BID #14 tablet 03/20/20 08/12/21 Rx [Augmentin 875-125 Tablet] Cetirizine HCl [Zyrtec 10mg tab] 10 mg PO DAILY #30 tablet 03/20/20 08/12/21 Rx Promethazine /Codeine 5 - 10 ml PO Q6H PRN #100 udc 03/20/20 08/12/21 Rx [Phenergan/Codeine 6.25-10 mg/5 ml] Allergies Allergy/AdvReac Type Severity Reaction Status Date / Time No Known Allergies Allergy Verified 08/13/21 07:55 ED Review of Systems ROS: Stated complaint: HEART PALPITATIONS Other details as noted in HPI Comment: All other systems reviewed and negative ED Past Medical Hx - Past Medical History Hx Hypertension: Yes Hx Diabetes: Yes Hx Asthma: Yes Hx HIV: Yes (last CD4 count 700s Fall 2018) - Surgical History Additional Surgical History: CYST REMOVED LEFT CHEST (CHILD) - Social History Smoking Status: Former Smoker Substance Use Type: None - Medications Home Medications: Home Medications Medication Instructions Recorded Confirmed Last Taken Type Abacavir/Dolutegravir/Lamivudi 1 each PO DAILY 07/04/16 08/13/21 08/12/21 Hist ory [Triumeq Tablet] Canagliflozin [Invokana] 300 mg PO DAILY 07/04/16 08/13/21 08/12/21 History Insulin Glargine [Lantus] 30 unit SUB-Q QHS 07/04/16 08/13/21 08/12/21 History Insulin Regular, Human [HumuLIN R] 15 unit SQ TIDAC 07/04/16 08/13/21 08/12/21 History Lansoprazole [Prevacid] 15 mg PO BID #60 cap 07/04/16 08/13/21 08/12/21 Rx Losartan 100 mg PO DAILY 07/04/16 08/13/21 08/12/21 History Simvastatin (Nf) [Zocor TAB] 20 mg PO QHS 07/04/16 08/13/21 08/12/21 History glipiZIDE [Glucotrol] 10 mg PO BID 07/04/16 08/13/21 08/12/21 History Albuterol Mdi (or & Nicu Only) 2 puff IH QID PRN #8.5 gram 03/20/20 08/13/21 08/12/21 Rx [ProAir HFA Inhaler] Amoxicillin/Potassium Clav 1 each PO BID #14 tablet 03/20/20 08/13/21 08/12/21 Rx [Augmentin 875-125 Tablet] Cetirizine HCl [Zyrtec 10mg tab] 10 mg PO DAILY #30 tablet 03/20/20 08/13/21 08/12/21 Rx Promethazine /Codeine 5 - 10 ml PO Q6H PRN #100 udc 03/20/20 08/13/21 08/12/21 Rx [Phenergan/Codeine 6.25-10 mg/5 ml] ED Physical Exam - General Limitations: No Limitations - Other Other exam information: General: No acute distress Head: Atraumatic Eyes: normal appearance ENT: Moist mucous membranes Neck: Normal appearance, no midline tenderness Chest: Clear to auscultation bilaterally CV: Regular rate and rhythm Abdomen: Soft, normal bowel sounds, nontender, nondistended, no rebound or guarding Back: Normal inspection Extremity: Normal inspection, full range of motion, no calf tenderness or leg edema Neuro: Alert O x 3, no facial asymmetry, speech clear, no gross motor sensory deficit Psych: Appropriate behavior Skin: No rash ED Course Vital Signs 08/13/21 08/13/21 08/13/21 07:52 08:21 08:31 Temperature Pulse Rate 74 Respiratory Rate Blood Pressure 152/72 141/63 Blood Pressure 120/76 [Left] O2 Sat by Pulse 99 99 Oximetry 08/13/21 08/13/21 08/13/21 08:45 08:47 09:07 Temperature 98.9 F Pulse Rate 61 Respiratory 16 Rate Blood Pressure 141/63 125/57 Blood Pressure [Left] O2 Sat by Pulse 98 98 100 Oximetry 08/13/21 08/13/21 08/13/21 09:08 09:15 09:31 Temperature Pulse Rate Respiratory Rate Blood Pressure 125/57 105/46 Blood Pressure [Left] O2 Sat by Pulse 98 99 100 Oximetry 08/13/21 08/13/21 09:45 10:01 Temperature Pulse Rate 57 L 71 Respiratory 10 L 9 L Rate Blood Pressure 105/46 110/64 Blood Pressure [Left] O2 Sat by Pulse 100 99 Oximetry - Reevaluation(s) Reevaluation #1: 08/13/21 08:40 At time of my evaluation patient states symptoms have improved. Heart rate in the 60s without signs of arrhythmia ED Medical Decision Making - Lab Data Result diagrams: 08/13/21 09:23 08/13/21 09:23 Lab Results 08/13/21 08/13/21 08/13/21 Range/Units 09:08 09:08 09:23 WBC 8.3 (4.5-11.0) K/mm3 RBC 4.05 (3.65-5.03) M/mm3 Hgb 11.9 (10.1-14.3) gm/dl Hct 36.3 (30.3-42.9) % MCV 90 (79-97) fl MCH 29 (28-32) pg MCHC 33 (30-34) % RDW 13.3 (13.2-15.2) % Plt Count 193 (140-440) K/mm3 Lymph % (Auto) 36.1 H (13.4-35.0) % Graham % (Auto) 5.9 (0.0-7.3) % Eos % (Auto) 1.9 (0.0-4.3) % Baso % (Auto) 1.1 (0.0-1.8) % Lymph # (Auto) 3.0 (1.2-5.4) K/mm3 Graham # (Auto) 0.5 (0.0-0.8) K/mm3 Eos # (Auto) 0.2 (0.0-0.4) K/mm3 Baso # (Auto) 0.1 (0.0-0.1) K/mm3 Seg Neutrophils % 55.0 (40.0-70.0) % Seg Neutrophils # 4.5 (1.8-7.7) K/mm3 PT (12.2-14.9) Sec. INR (0.87-1.13) VBG pH (7.320-7.420) Sodium (137-145) mmol/L Potassium (3.6-5.0) mmol/L Chloride (98-107) mmol/L Carbon Dioxide (22-30) mmol/L Anion Gap mmol/L BUN (7-17) mg/dL Creatinine (0.6-1.2) mg/dL Estimated GFR ml/min BUN/Creatinine Ratio % Glucose (65-100) mg/dL Calcium (8.4-10.2) mg/dL Magnesium (1.7-2.3) mg/dL Total Bilirubin (0.1-1.2) mg/dL AST (5-40) units/L ALT (7-56) units/L Alkaline Phosphatase (35-129) units/L Troponin T (0.00-0.029) ng/mL Total Protein (6.3-8.2) g/dL Albumin (3.9-5) g/dL Albumin/Globulin Ratio % TSH (0.270-4.200) mlU/mL Free T4 (0.76-1.46) ng/dL Urine Color Straw (Yellow) Urine Turbidity Clear (Clear) Urine pH 6.0 (5.0-7.0) Ur Specific [place] 1.025 (1.003-1.030) Urine Protein <15 mg/dl (Negative) mg/dL Urine Glucose (UA) >=500 (Negative) mg/dL Urine Ketones Neg (Negative) mg/dL Urine Blood Neg (Negative) Urine Nitrite Neg (Negative) Urine Bilirubin Neg (Negative) Urine Urobilinogen < 2.0 (<2.0) mg/dL Ur Leukocyte Esterase Neg (Negative) Urine WBC (Auto) < 1.0 (0.0-6.0) /HPF Urine RBC (Auto) < 1.0 (0.0-6.0) /HPF U Epithel Cells (Auto) 1.0 (0-13.0) /HPF Urine Mucus Few /HPF Urine Opiates Screen Negative Urine Methadone Screen Negative Ur Barbiturates Screen Negative Ur Phencyclidine Scrn Negative Ur Amphetamines Screen Negative U Benzodiazepines Scrn Negative Urine Cocaine Screen Negative U Marijuana (THC) Screen Negative Drugs of Abuse Note Disclamer 08/13/21 08/13/21 08/13/21 Range/Units 09:23 09:23 09:23 WBC (4.5-11.0) K/mm3 RBC (3.65-5.03) M/mm3 Hgb (10.1-14.3) gm/dl Hct (30.3-42.9) % MCV (79-97) fl MCH (28-32) pg MCHC (30-34) % RDW (13.2-15.2) % Plt Count (140-440) K/mm3 Lymph % (Auto) (13.4-35.0) % Graham % (Auto) (0.0-7.3) % Eos % (Auto) (0.0-4.3) % Baso % (Auto) (0.0-1.8) % Lymph # (Auto) (1.2-5.4) K/mm3 Graham # (Auto) (0.0-0.8) K/mm3 Eos # (Auto) (0.0-0.4) K/mm3 Baso # (Auto) (0.0-0.1) K/mm3 Seg Neutrophils % (40.0-70.0) % Seg Neutrophils # (1.8-7.7) K/mm3 PT (12.2-14.9) Sec. INR (0.87-1.13) VBG pH 7.361 (7.320-7.420) Sodium 137 (137-145) mmol/L Potassium 3.4 L (3.6-5.0) mmol/L Chloride 100.7 (98-107) mmol/L Carbon Dioxide 26 (22-30) mmol/L Anion Gap 14 mmol/L BUN 18 H (7-17) mg/dL Creatinine 0.7 (0.6-1.2) mg/dL Estimated GFR > 60 ml/min BUN/Creatinine Ratio 26 % Glucose 263 H (65-100) mg/dL Calcium 9.4 (8.4-10.2) mg/dL Magnesium 1.70 (1.7-2.3) mg/dL Total Bilirubin < 0.20 (0.1-1.2) mg/dL AST 11 (5-40) units/L ALT 13 (7-56) units/L Alkaline Phosphatase 98 (35-129) units/L Troponin T < 0.010 (0.00-0.029) ng/mL Total Protein 6.8 (6.3-8.2) g/dL Albumin 4.0 (3.9-5) g/dL Albumin/Globulin Ratio 1.4 % TSH 1.190 (0.270-4.200) mlU/mL Free T4 1.16 (0.76-1.46) ng/dL Urine Color (Yellow) Urine Turbidity (Clear) Urine pH (5.0-7.0) Ur Specific [place] (1.003-1.030) Urine Protein (Negative) mg/dL Urine Glucose (UA) (Negative) mg/dL Urine Ketones (Negative) mg/dL Urine Blood (Negative) Urine Nitrite (Negative) Urine Bilirubin (Negative) Urine Urobilinogen (<2.0) mg/dL Ur Leukocyte Esterase (Negative) Urine WBC (Auto) (0.0-6.0) /HPF Urine RBC (Auto) (0.0-6.0) /HPF U Epithel Cells (Auto) (0-13.0) /HPF Urine Mucus /HPF Urine Opiates Screen Urine Methadone Screen Ur Barbiturates Screen Ur Phencyclidine Scrn Ur Amphetamines Screen U Benzodiazepines Scrn Urine Cocaine Screen U Marijuana (THC) Screen Drugs of Abuse Note 08/13/21 Range/Units 09:23 WBC (4.5-11.0) K/mm3 RBC (3.65-5.03) M/mm3 Hgb (10.1-14.3) gm/dl Hct (30.3-42.9) % MCV (79-97) fl MCH (28-32) pg MCHC (30-34) % RDW (13.2-15.2) % Plt Count (140-440) K/mm3 Lymph % (Auto) (13.4-35.0) % Graham % (Auto) (0.0-7.3) % Eos % (Auto) (0.0-4.3) % Baso % (Auto) (0.0-1.8) % Lymph # (Auto) (1.2-5.4) K/mm3 Graham # (Auto) (0.0-0.8) K/mm3 Eos # (Auto) (0.0-0.4) K/mm3 Baso # (Auto) (0.0-0.1) K/mm3 Seg Neutrophils % (40.0-70.0) % Seg Neutrophils # (1.8-7.7) K/mm3 PT 13.0 (12.2-14.9) Sec. INR 0.89 (0.87-1.13) VBG pH (7.320-7.420) Sodium (137-145) mmol/L Potassium (3.6-5.0) mmol/L Chloride (98-107) mmol/L Carbon Dioxide (22-30) mmol/L Anion Gap mmol/L BUN (7-17) mg/dL Creatinine (0.6-1.2) mg/dL Estimated GFR ml/min BUN/Creatinine Ratio % Glucose (65-100) mg/dL Calcium (8.4-10.2) mg/dL Magnesium (1.7-2.3) mg/dL Total Bilirubin (0.1-1.2) mg/dL AST (5-40) units/L ALT (7-56) units/L Alkaline Phosphatase (35-129) units/L Troponin T (0.00-0.029) ng/mL Total Protein (6.3-8.2) g/dL Albumin (3.9-5) g/dL Albumin/Globulin Ratio % TSH (0.270-4.200) mlU/mL Free T4 (0.76-1.46) ng/dL Urine Color (Yellow) Urine Turbidity (Clear) Urine pH (5.0-7.0) Ur Specific [place] (1.003-1.030) Urine Protein (Negative) mg/dL Urine Glucose (UA) (Negative) mg/dL Urine Ketones (Negative) mg/dL Urine Blood (Negative) Urine Nitrite (Negative) Urine Bilirubin (Negative) Urine Urobilinogen (<2.0) mg/dL Ur Leukocyte Esterase (Negative) Urine WBC (Auto) (0.0-6.0) /HPF Urine RBC (Auto) (0.0-6.0) /HPF U Epithel Cells (Auto) (0-13.0) /HPF Urine Mucus /HPF Urine Opiates Screen Urine Methadone Screen Ur Barbiturates Screen Ur Phencyclidine Scrn Ur Amphetamines Screen U Benzodiazepines Scrn Urine Cocaine Screen U Marijuana (THC) Screen Drugs of Abuse Note - EKG Data -: EKG Interpreted by Me EKG shows normal: sinus rhythm, ST-T waves (No STEMI) Rate: normal (60) - Medical Decision Making 60-year-old female reporting intermittent palpitations last night that resolved prior to arrival and hyperglycemia this morning. ED work-up unremarkable with exception of mild hypokalemia and hyperglycemia. Patient was treated with p.o. potassium IV insulin and IV fluids with improvement. During ED stay heart rate was in the 50s while sleeping and will increase only to the low 70s. No signs of irregular rhythm or tachycardia during ED stay. Hypoglycemia likely secondary to not taking a.m. diabetes medication. No signs of DKA. Glucose improving with ED treatment. Patient advised to purchase a device to monitor her heart rate so she may document her heart rate during these episodes of fluttering. Outpatient follow-up with cardiology will be advised - Differential Diagnosis DKA, arrhythmia, SVT, anemia, hyperglycemia, dehydration, thyroidism, anxie Critical Care Time: No Critical care attestation.: If time is entered above; I have spent that time in minutes in the direct care of this critically ill patient, excluding procedure time. ED Disposition Clinical Impression: Intermittent palpitations, Hyperglycemia due to diabetes mellitus, Hypokalemia Disposition: 01 HOME / SELF CARE / HOMELESS Is pt being admited?: No Does the pt Need Aspirin: No Condition: Stable Instructions: Palpitations, [id number], Diabetes Mellitus Type 2 in Adults (ED), Hyperglycemia, [id number], Hypokalemia Additional Instructions: Avoid caffeine. Follow-up with your doctor and a home coordinator. Continue to monitor and document your heart rate during these episodes. Return if symptoms worsen as indicated by your discharge instructions Referrals: PRIMARY CARE, [Referring] - 3-5 Days [facility] [Staff Physician] - 3-5 Days (Cardiology) Time of Disposition: 10:24
[2021-08-13 09:53] LABS: Basophils # (Auto) 0.1 K/mm3 (0.0-0.1); Basophils % (Auto) 1.1 % (0.0-1.8); Eosinophils # (Auto) 0.2 K/mm3 (0.0-0.4); Eosinophils % (Auto) 1.9 % (0.0-4.3); Hematocrit 36.3 % (30.3-42.9); Hemoglobin 11.9 gm/dl (10.1-14.3); Lymphocytes % (Auto) 36.1 % (13.4-35.0); Mean Corpuscular HGB Conc 33 % (30-34); Mean Corpuscular Volume 90 fl (79-97); Monocytes # (Auto) 0.5 K/mm3 (0.0-0.8); Monocytes % (Auto) 5.9 % (0.0-7.3); Platelet Count 193 K/mm3 (140-440); Red Blood Count 4.05 M/mm3 (3.65-5.03); Red Cell Distribution Width 13.3 % (13.2-15.2)
[2021-08-13 09:59] LABS: Bilirubin,Urine NEG (Negative); Blood,Urine NEG (Negative); Color,Urine Straw (Yellow); Mucus,Urine FEW /HPF; Protein,Urine <15 mg/dL mg/dL (Negative); Urobilinogen,Urine < 2.0 mg/dL (<2.0); WBC,Urine < 1.0 /HPF (0.0-6.0)
[2021-08-13 10:04] LABS: RBC,Urine < 1.0 /HPF (0.0-6.0)
[2021-08-13 10:09] LABS: Alanine Aminotransferase 13 units/L (7-56); Blood Urea Nitrogen 18 mg/dL (7-17); Calcium 9.4 mg/dL (8.4-10.2); Hemolysis Index 13; INR 0.89 (0.87-1.13)
[2021-08-13 10:11] LABS: BUN/Creatinine Ratio 26
[2021-08-13 10:12] LABS: Amphetamine Screen,Urine Negative; Benzodiazepines Screen,Urine Negative; Cannabinoid Screen,Urine Negative; Cocaine Screen,Urine Negative; Methadone Screen,Urine Negative; Opiate Screen,Urine Negative
[2021-08-13] MEDS ORDERED: POTASSIUM CHLORIDE ER 20 MEQ TAB PO ONE (10:13)
[2021-08-13 10:17] LABS: Free T4 (Free Thyroxine) 1.16 ng/dL (0.76-1.46)
[2021-08-13 10:39] VITALS: BP 131/69
--- NOTE | 2021-08-14 17:56 | Electrocardiograph Report ---
[facility] Test Date: 2021-08-13 Test Time: 08:22:28 Pat Name: BON JUAREZ Department: Room: Gender: F Surgeon'S Assistant: FELIZ : 1960 Requested By: RIKI SMITH Order Number: [id number] Reading MD: Camila Hyatt Measurements Intervals [place] Rate: 60 P: 33 TX: 183 QRS: 56 QRSD: 78 T: 54 QT: 426 QTc: 428 Interpretive Statements Sinus rhythm Probable left atrial enlargement No previous ECG available for comparison Electronically Signed On 08-14-2021 17:55:42 EDT by Camila Hyatt
== END 2021-08-13 10:37 | disposition home or self-care (01) ==
LOC: ED 07:45
DX: E11.65 Type 2 diabetes mellitus with hyperglycemia (principal); E87.6 Hypokalemia; I10 Essential (primary) hypertension; R79.1 Abnormal coagulation profile; J45.909 Unspecified asthma, uncomplicated; Z87.891 Personal history of nicotine dependence; Z79.899 Other long term (current) drug therapy
CPT/HCPCS: 36415; 80053; 80307; 81001; 82805; 82962; 83735; 84439; 84443; 84484; 85025; 85610; 93005; 96361; 96374; 99284; J7030; Q9967; J1815